=== PATIENT | male | born 1980 | race Caucasian/White ===

== ENCOUNTER 2016-11-10 16:31 | Inpatient (IN) | payer OTHER ==
[2016-11-10] MEDS ORDERED: SODIUM CHLORIDE 1,000 ML IV STA (16:53)
[2016-11-10 17:37] LABS: BASOPHIL 0.2 % (0-2.0); MCH 32.1 pg (25.7-33.7); MEAN CELL VOLUME 91.7 fl (80-96); MEAN PLT VOLUME 9.3 fl (7.5-11.1); NEUTROPHILS 79.4 % (42.8-82.8); PLATELET COUNT 95 K/MM3 (134-434); RDW 12.7 % (11.9-15.9); WHITE BLOOD COUNT 4.1 K/mm3 (4.0-10.0)
--- NOTE | 2016-11-10 17:48 | PDOC ---
History of Present Illness - General History Source: Patient Exam Limitations: No Limitations - History of Present Illness Initial Comments: 11/10/16 18:43 The patient is a 36 year old male, with a significant past medical history of pacemaker, HTN and migraines, who presents to the emergency department after being sent by Dr. Wyman for positive blood cultures. The patient was dischareged 5 days ago from [facility] after a syncope episode after a 2 day stay and returned 2 days later for left arm cellulitis, fever and chills. The patient was discharged same day with antibiotics. The patient returned to the ED early this morning at 1:30am with complaints of fever, chills, headache, cough, vomiting and diarrhea that has been intermittent since he left the hospital. Upon presentation he still complaints of fever, chills, headache, abdominal pain /bloating, vomiting and diarrhea. He describes his headache as moderate, without radiation or modifying factors. He describes his abdominal pain as a bloating type of discomfort, that is mild in nature, without radiation or modifying factors. The patient denies neck stiffness, chest pain, shortness of breath, dizziness and constipation. Denies dysuria, frequency, urgency and hematuria. Allergies: None Past surgical history: Pacemaker Social history: No alcohol, tobacco or drug use reported PMD - Dr. David Wyman <Dale Diane - Last Filed: 11/10/16 18:43> <Geovany Parsons - Last Filed: 11/10/16 20:28> - General Chief Complaint: Revisit, Lab Variance Stated Complaint: PCP SENT/SEPSIS Time Seen by Provider: 11/10/16 16:53 Past History <Dale Diane - Last Filed: 11/10/16 18:43> - Past Medical History Cardiac Disorders: Yes (cad) HTN: Yes Other medical history: migraines - Surgical History Cardiac Surgery: Yes (pacemaker) - Psycho/Social/Smoking Cessation Hx Anxiety: No Suicidal Ideation: No Smoking History: Unknown if ever smoked Have you smoked in the past 12 months: No Number of Cigarettes Smoked Daily: 0 Information on smoking cessation initiated: No Hx Alcohol Use: No Drug/Substance Use Hx: No Substance Use Type: None <Geovany Parsons - Last Filed: 11/10/16 20:28> - Past Medical History Allergies/Adverse Reactions: Allergies Allergy/AdvReac Type Severity Reaction Status Date / Time alcohol Allergy Hives Verified 11/10/16 16:33 Penicillins Allergy Verified 11/10/16 16:33 Sulfa (Sulfonamide Allergy Verified 11/10/16 16:33 Antibiotics) Home Medications: Ambulatory Orders Enalapril Maleate 2.5 mg PO DAILY 02/14/16 Montelukast Na [Singulair -] 10 mg PO HS 11/04/16 Topiramate [Topamax -] 25 mg PO BID #60 tablet 11/06/16 Bacitracin - [Bacitracin Topical Ointment -] 1 applic TP BID PRN #1 tube Cephalexin Monohydrate [Keflex -] 500 mg PO Q8H #30 capsule 11/09/16 Sulfamethoxazole/Trimethoprim [Bactrim Ds -] 1 tab PO BID #20 tablet 11/09/16 Clindamycin [Cleocin -] 300 mg PO Q6HPO #40 capsule 11/10/16 Ibuprofen [Advil -] 600 mg PO QID PRN 11/10/16 Review of Systems - Review of Systems Able to Perform ROS?: Yes Comments:: 11/10/16 18:44 CONSTITUTIONAL: No reported: Fever, Chills, Diaphoresis, Generalized Weakness, Malaise, Loss of Appetite HEENT: No reported: Rhinorrhea, Nasal Congestion, Throat Pain, Throat Swelling, Difficulty Swallowing, Mouth Swelling, Ear Pain, Eye Pain, Visual Changes CARDIOVASCULAR: No reported: Chest Pain, Syncope, Palpitations, Irregular Heart Rate, Lightheadedness, Peripheral Edema RESPIRATORY: No reported: Cough, Shortness of Breath, SOB with Exertion, Orthopnea, Wheezing , Stridor, Hemoptysis GASTROINTESTINAL: No reported: Abdominal pain, Abdominal Distension, Nausea, Vomiting, Diarrhea, Constipation, Melena, Hematochezia GENITOURINARY: No reported: Dysuria, Frequency, Urgency, Hesitancy, Flank Pain, Genital Pain MUSCULOSKELETAL: No reported: Myalgia, Arthralgia, Joint Swelling, Back pain, Neck Pain SKIN: No reported: Rash, Itching, Pallor HEMEATOLOGIC/IMMUNOLOGIC: No reported: Easy Bleeding, Easy Bruising, Lymphadenopathy, Frequent infections ENDOCRINE: No reported: Unexplained Weight Gain, Unexplained Weight Loss, Heat Intolerance , Cold Intolerance NEUROLOGIC: No reported: Headache, Focal Weakness, Paresthesias, Vertigo, Lightheadedness, Unsteady Gait, Seizure, Mental Status Changes, Incontinence PSYCHIATRIC: No reported: Anxiety, Depression <Dale Diane - Last Filed: 11/10/16 18:43> *Physical Exam - Vital Signs Last Vital Signs Temp Pulse Resp BP Pulse Ox 98.9 F 88 20 94/54 97 11/10/16 17:55 11/10/16 17:55 11/10/16 17:55 11/10/16 17:55 11/10/16 17:55 - Physical Exam Comments: 11/10/16 18:44 GENERAL: The patient is awake, alert, and fully oriented, Nontoxic - in no acute distress. HEAD: Normocephalic, atraumatic. EYES: extraocular movements intact, sclera anicteric, conjunctiva clear. ENT: Normal voice, Moist mucous membranes. NECK: Normal range of motion, supple LUNGS: Breath sounds equal, clear to auscultation bilaterally. No wheezes, no rhonchi, no rales. HEART: Regular rate and rhythm, without murmur, rub or gallop. ABDOMEN: Soft, nontender, normoactive bowel sounds. No guarding, no rebound.No CVA tenderness EXTREMITIES: Normal range of motion, no edema. No clubbing or cyanosis. No cords, erythema, or tenderness. NEUROLOGICAL: No facial assymetry, Normal speech, PSYCH: Normal mood, normal affect. SKIN: +Erythema over the left bicep and induration with tenderness in the distal upper arm. Warm, Dry, normal turgor. <Dale Diane - Last Filed: 11/10/16 18:43> - Vital Signs Last Vital Signs Temp Pulse Resp BP Pulse Ox 98.6 F 100 H 18 120/70 100 11/10/16 16:35 11/10/16 16:35 11/10/16 16:35 11/10/16 16:35 11/10/16 17:15 <Geovany Parsons - Last Filed: 11/10/16 20:28> Heart Score/ECG Review - ECG Impressions Comment:: 11/10/16 18:11 Twelve-lead EKG was performed and reviewed by me. There is normal sinus rhythm with a normal rate. Rate of 88 The axis is normal. Incomplete RBBB no st changes suggestive of acute ischemia <Geovany Parsons - Last Filed: 11/10/16 20:28> ED Treatment Course - LABORATORY CBC & Chemistry Diagram: 11/10/16 17:19 11/10/16 17:19 - ADDITIONAL ORDERS Additional order review: Laboratory Results 11/10/16 11/10/16 11/10/16 18:15 17:19 17:19 INR PTT (Actin FS) VBG pH 7.35 POC VBG pCO2 41.7 POC VBG pO2 16.8 L* Mixed VBG HCO3 22.1 Sodium 140 Potassium 3.1 L Chloride 105 Carbon Dioxide 24 Anion Gap 11 BUN 11 D Creatinine 1.2 D Creat Clearance w eGFR > 60 Random Glucose 127 H D Lactic Acid 0.954 Calcium 8.0 L Total Bilirubin 0.5 AST 42 H D ALT 42 Alkaline Phosphatase 74 Creatine Kinase 413 H Troponin I < 0.02 Total Protein 6.3 L Albumin 3.2 L 11/10/16 17:19 INR 1.47 H PTT (Actin FS) 34.7 H VBG pH POC VBG pCO2 POC VBG pO2 Mixed VBG HCO3 Sodium Potassium Chloride Carbon Dioxide Anion Gap BUN Creatinine Creat Clearance w eGFR Random Glucose Lactic Acid Calcium Total Bilirubin AST ALT Alkaline Phosphatase Creatine Kinase Troponin I Total Protein Albumin 11/10/16 17:19 RBC 4.19 MCV 91.7 MCHC 35.0 RDW 12.7 MPV 9.3 Neutrophils % 79.4 Lymphocytes % 14.9 D Monocytes % 5.5 Eosinophils % 0.0 Basophils % 0.2 - Medications Given in the ED: ED Medications Discontinued Medications Generic Name Dose Route Start Last Admin Trade Name Joan PRN Reason Stop Dose Admin Acetaminophen 650 mg 11/10/16 18:01 11/10/16 18:14 Tylenol - PO 11/10/16 18:02 650 mg ONCE ONE Administration Sodium Chloride 1,000 mls @ 1,000 mls/hr 11/10/16 16:53 11/10/16 18:03 Normal Saline - IV 11/10/16 17:52 1,000 mls/hr ASDIR STA Administration <Dale Diane - Last Filed: 11/10/16 18:43> - LABORATORY CBC & Chemistry Diagram: 11/10/16 17:19 11/10/16 17:19 - RADIOLOGY Radiology Studies Ordered: Category Date Time Status CHEST X-RAY PORTABLE* [RAD] Stat Radiology 11/10/16 16:53 Ordered DUPLEX VASCUL US-1 ARM [US] Stat Ultrasound 11/10/16 17:39 Ordered <Geovany Parsons - Last Filed: 11/10/16 20:28> Medical Decision Making - Medical Decision Making 11/10/16 18:02 36y M hx of syncope s/p PM presents with fever pt had recent admission for syncope, and has been feeling L arm pain, fever/chills for several days, pt was in the ED 2x the past 2 days, but was dc with oral abx with dx of cellulitis. pt went to his PMD who saw that he had a +blood cx x2 with MSSA and told the pt tocme back to the ED. ON exam pt does have a LUE infection proximal to his iv site that appears indurated. will obtain us to r/o dvt blood work case balta bland - recommended ancef repeat blood cultures obtained pts bp was low normal - will fluid resusistate sepsps protocol obtained. A portion of this note was documented by scribe services under my direction. I have reviewed the details of the note, within reason, and agree with the documentation with the following case summary and management plan written by me 11/10/16 18:16 11/10/16 20:15 LABS REVIEWED pts K repleted case dw dr. qiu agreed with admission for further management of bacteremia Stable for admission to [facility] Case discussed in detail with admitting physician including history, physical exam and ancillary studies. Admitting physician has assumed care for the patient, will follow all pending diagnostics and will complete the evaluation and treatment. 11/10/16 20:26 US shows thrombosis of distal cephalic vein - supervicial vein thrombbosis - liklye related to thromphlebitis <Geovany Parsons - Last Filed: 11/10/16 20:28> *DC/Admit/Observation/Transfer - Attestations Scribe Attestion: 11/10/16 18:44 Documentation prepared by Dale Diane, acting as medical transcription supervisor for Geovany Parsons MD <Dale Diane - Last Filed: 11/10/16 18:43> - Discharge Dispostion Admit: Yes <Geovany Parsons - Last Filed: 11/10/16 20:28> Diagnosis at time of Disposition: Left arm cellulitis, Bacteremia, Thrombosis of left cephalic vein - Referrals
[2016-11-10 17:50] LABS: INR 1.47 (0.82-1.09); PROTHROMBIN TIME (PATIENT) 16.3 SEC (9.98-11.88)
[2016-11-10 17:53] LABS: ACTIVATED PTT 34.7 SECONDS (26.9-34.4)
[2016-11-10] MEDS ORDERED: ACETAMINOPHEN 325 MG TABLET (FP) PO ONE (18:01)
[2016-11-10 18:05] LABS: ALBUMIN 3.2 g/dl (3.4-5.0); ANION GAP 11 (8-16); CO2 24 mmol/L (21-32); CREATININE 1.2 mg/dL (0.7-1.3); GLUCOSE,RANDOM 127 mg/dL (74-106); SGOT/AST 42 U/L (15-37); SGPT/ALT 42 U/L (12-78)
--- NOTE | 2016-11-10 18:06 | PN ---
Progress Note (short form) - Note Progress Note: Full consult to follow in am Patient seen in ED at the request of Dr Wyman. 36 year old man recently hospitalized 11/04 to 11/06 for syncope- PPM check ok, d/ [facility]rie home and developed fevers at home, came to ED 11/09 with c/o left arm swelling and purulent drainage from prior iv site (antecub) fossa as well as fever- he was given iv antibiotics and discharged on po keflex and bactrim he returned this am to ED with high fevers and vomiting and diarrhea which he states started after taking bactrim, he received vancomyin 1500 mg early this am and clindamycin 900 mg and was discharged on po clindamycin he went to see Dr Wyman this afternoon who noted positive blood cultures drawn in ED and sent him to ED his vomiting has stopped he is drinking gatorade currently afebrile PE notable for swelling of left upper arm with some mild erythema and warmth, no purulent drainage no pain or erythema at PPM site no stigmata of endocarditis -no skin lesions or conjunctival hemorrhages rest of ED workup has been ordered a/p staph bacteremia- secondary to phlebitis r/o endocarditis, r/o PPM infection duplex left arm ekg echo repeat blood cultures and labs cardiology consult stat vancomycin level- creatinine 1.6 this am will continue vancomycin until sensitivites are available for blood cultures in am pen allergy ?sulfa allergy (vomiting) d/w dr marlow and dr wyman
[2016-11-10 18:08] LABS: ALK PHOS 74 U/L (45-117); BILIRUBIN,TOTAL 0.5 mg/dL (0.2-1.0); TOT PROT 6.3 g/dl (6.4-8.2); TROPONIN I < 0.02 ng/ml (0.00-0.05)
[2016-11-10] MEDS ORDERED: ACETAMINOPHEN 325 MG TABLET (FP) ONE (18:10)
[2016-11-10 18:24] LABS: VENOUS BLOOD GAS HCO3 22.1 meq/L (19-25); VENOUS PH 7.35 (7.32-7.42)
[2016-11-10] MEDS ORDERED: ceFAZolin 2 GRAM PREMIX BAG IVPB ONE (19:00)
[2016-11-10] MEDS ORDERED: POTASSIUM CHLORIDE TABS 20 MEQ TABLET.ER (FP) PO ONE ×2 (19:53→20:09)
[2016-11-10] MEDS ORDERED: VANCOMYCIN 1,500 MG in DEXTROSE 5%-WATER - 500 ML IVPB ONE (20:02)
[2016-11-10] MEDS ORDERED: BACITRACIN 30 GM TUBE TOPICAL OINTMENT TP PRN (20:14)
[2016-11-10] MEDS ORDERED: ACETAMINOPHEN 325 MG TABLET (FP) PO PRN (20:15)
[2016-11-10] MEDS: SODIUM CHLORIDE 0.45% 1,000 ML IV SCH (21:00)
[2016-11-10] MEDS ORDERED: IBUPROFEN 200 MG TABLET PO PRN (21:20)
[2016-11-10] MEDS: MONTELUKAST NA 10 MG TABLET PO SCH (22:21)
[2016-11-10] MEDS: ENOXAPARIN NA (PORCINE) 40 MG/0.4 ML DISP.SYRIN SQ SCH (22:21)
[2016-11-10] MEDS ORDERED: VANCOMYCIN 1,500 MG in DEXTROSE 5%-WATER - 500 ML IVPB SCH (22:30)
[2016-11-10] MEDS ORDERED: IBUPROFEN 600 MG TABLET (FP) PO PRN (23:07)
[2016-11-10 23:27] VITALS: BMI 37.6
[2016-11-10] MEDS: TOPIRAMATE 25 MG TABLET (FP) PO SCH (23:31)
[2016-11-11 00:49] LABS: URINE APPEARANCE CLEAR; URINE BILIRUBIN NEGATIVE (NEGATIVE); URINE BLOOD NEGATIVE (NEGATIVE); URINE COLOR YELLOW; URINE GLUCOSE (UA) NEGATIVE (NEGATIVE); URINE KETONE NEGATIVE (NEGATIVE); URINE LEUK ESTERASE NEGATIVE (NEGATIVE); URINE NITRITE NEGATIVE (NEGATIVE); URINE UROBILINOGEN NEGATIVE E.U./dl (0.2-1.0)
[2016-11-11 00:52] LABS: URINE PROTEIN 2+ (NEGATIVE)
[2016-11-11 00:54] LABS: URINE BACTERIA FEW /hpf (NONE SEEN); URINE MUCUS MODERATE; URINE RBC 3 /hpf (0-3); URINE WBC 3 /hpf (3-5)
[2016-11-11 07:22] LABS: MCH 32.4 pg (25.7-33.7); MCHC 35.5 g/dl (32.0-35.9); MEAN CELL VOLUME 91.2 fl (80-96); MEAN PLT VOLUME 9.3 fl (7.5-11.1); PLATELET COUNT 73 K/MM3 (134-434); RDW 12.7 % (11.9-15.9); WHITE BLOOD COUNT 3.4 K/mm3 (4.0-10.0)
[2016-11-11 08:03] LABS: ALBUMIN 2.9 g/dl (3.4-5.0); ANION GAP 10 (8-16); BILIRUBIN,TOTAL 0.3 mg/dL (0.2-1.0); CALCIUM 8.2 mg/dL (8.5-10.1); CO2 22 mmol/L (21-32); CREATININE 0.8 mg/dL (0.7-1.3); GLUCOSE,RANDOM 119 mg/dL (74-106); SGOT/AST 29 U/L (15-37); SGPT/ALT 36 U/L (12-78); TOT PROT 5.8 g/dl (6.4-8.2)
[2016-11-11 08:04] LABS: ALK PHOS 61 U/L (45-117)
[2016-11-11] MEDS ORDERED: PT OWN MED DRAWER 7, Y5N ONE ×2 (10:29→18:08)
[2016-11-11] MEDS: ASPIRIN 81 MG CHEWABLE TABLETS PO SCH (10:34)
[2016-11-11] MEDS: TOPIRAMATE 25 MG TABLET (FP) PO SCH ×2 (10:34→23:39)
[2016-11-11] MEDS: ENALAPRIL MALEATE 5 MG TABLET (FP) PO SCH (10:35)
[2016-11-11] MEDS: ENOXAPARIN NA (PORCINE) 40 MG/0.4 ML DISP.SYRIN SQ SCH (10:35)
--- NOTE | 2016-11-11 11:32 | EKG ---
Test Reason : Blood Pressure : / mmHG Vent. Rate : 088 BPM Atrial Rate : 088 BPM P-R Int : 164 ms QRS Dur : 110 ms QT Int : 368 ms P-R-T Axes : 055 027 042 degrees QTc Int : 445 ms NORMAL SINUS RHYTHM POSSIBLE LEFT ATRIAL ENLARGEMENT INCOMPLETE RIGHT BUNDLE BRANCH BLOCK BORDERLINE ECG WHEN COMPARED WITH ECG OF 10-NOV-2016 02:09, NO SIGNIFICANT CHANGE WAS FOUND Confirmed by LICHA LAND, STONEY ([id number]) on 11/11/2016 11:31:59 AM Referred By: Confirmed By:STONEY HURT MD
[2016-11-11] MEDS ORDERED: CEFAZOLIN 2 GM in DEXTROSE 5%-WATER - 50 ML IVPB SCH (11:45)
--- NOTE | 2016-11-11 11:58 | PN ---
Progress Note (short form) - Note Progress Note: still feels lousy no fevers overnight continues with frontal headache 01/23 no neck pain still some nausea still some diarrhea which started 2 days ago at home Vital Signs Period Temp Pulse Resp BP Sys/Draper Pulse Ox Last 24 Hr 97.7 F-98.9 F 65-100 18-20 91-120/53-70 97-100 no conjunctival hemorrhages cor-rrr lungs clear pacemaker site no erythema abd soft,nt ext less erythema left upper arm CBC, BMP 11/11/16 06:10 11/11/16 06:10 blood cultures pending blood cultures 11/09 MSSA duplex- cephalic vein thrombus a/p MSSA bacteremia-r/o endocarditis/PPM infection? suspect from phlebitis change to cefazolin (pen allergy-no anaphylaxis, tolerated keflex and cefriaxone in the ED) echo cardiology consult repeat blood cultures pending esr/crp thrombocytopenia- ?secondary to sepsis dic profile ordered headache-head ct today cephalic vein thrombus PPM
--- NOTE | 2016-11-11 12:10 | HP ---
Admitting History and Physical - Primary Care Physician PCP: Molly Burton - Admission Chief Complaint: bacteremia History of Present Illness: 36 yrs old male sent to hospital yesterday for positive blood cultures. Pt was recently discharged from here for syncope. He did not feel good after discharge.Had developed redness and a pimple on the left cubital region where he had his IV line placed. Went to the ER twice due to high fever and dc home on Keflex and Bactrim. He had allergic reaction to Bactrim. He went to Dr Nugent' s office yesterday as he was still feeling weak and sick-- poor appetite . Still had fever and left arm pain . Dr nugent looked into the ER notes and found out his blood cultures were all positive for MSSA. Pt examined today Poor appetite Chills No chest pain Has "terrible" headache. No nausea, blurry vision. Frontal headache radiating to back of head. 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 Cardiovascular: Yes: HTN, Other (PPM , h/o syncope) - Smoking History Smoking history: Never smoked Have you smoked in the past 12 months: No Aproximately how many cigarettes per day: 0 - Alcohol/Substance Use Hx Alcohol Use: No Home Medications - Allergies Allergies/Adverse Reactions: Allergies Allergy/AdvReac Type Severity Reaction Status Date / Time alcohol Allergy Hives Verified 11/10/16 16:33 Penicillins Allergy Verified 11/10/16 16:33 Sulfa (Sulfonamide Allergy Verified 11/10/16 16:33 Antibiotics) - Home Medications Home Medications: Ambulatory Orders Enalapril Maleate 2.5 mg PO DAILY 02/14/16 Montelukast Na [Singulair -] 10 mg PO HS 11/04/16 Topiramate [Topamax -] 25 mg PO BID #60 tablet 11/06/16 Bacitracin - [Bacitracin Topical Ointment -] 1 applic TP BID PRN #1 tube Cephalexin Monohydrate [Keflex -] 500 mg PO Q8H #30 capsule 11/09/16 Sulfamethoxazole/Trimethoprim [Bactrim Ds -] 1 tab PO BID #20 tablet 11/09/16 Clindamycin [Cleocin -] 300 mg PO Q6HPO #40 capsule 11/10/16 Ibuprofen [Advil -] 600 mg PO QID PRN 11/10/16 Review of Systems - Review of Systems Eyes: denies: Blurred Vision Cardiovascular: denies: Chest Pain, Edema, Palpitations, Shortness of Breath Respiratory: denies: Cough Neurological: reports: Headache Physical Examination Vital Signs: Vital Signs Temperature 97.7 F 11/11/16 05:43 Pulse Rate 65 11/11/16 05:43 Respiratory Rate 20 11/11/16 06:53 Blood Pressure 111/65 11/11/16 05:43 O2 Sat by Pulse Oximetry (%) 97 11/11/16 06:53 Constitutional: Yes: No Distress, Calm Cardiovascular: Yes: Regular Rate and Rhythm. No: Murmur Respiratory: Yes: CTA Bilaterally Gastrointestinal: Yes: Normal Bowel Sounds, Soft. No: Distention, Tenderness Edema: No Neurological: Yes: Alert, Oriented, Other (no neck rigidity) Psychiatric: Yes: Alert, Oriented Labs: CBC, BMP 11/11/16 06:10 11/11/16 06:10 Imaging - Results Chest X-ray: Image Reviewed (cardiomegaly, no infiltrate) Ultrasound: Report Reviewed (left arm cephalic vein thrombosis) EKG: Image Reviewed (SInus, incomplete RBBB) Problem List - Problems (1) Bacteremia Code(s): R78.81 - BACTEREMIA (2) Cephalic vein thrombosis, left Code(s): I82.612 - ACUTE EMBOLISM AND THOMBOS OF SUPERFIC VEINS OF L UP EXTREM (3) Left arm cellulitis Code(s): L03.114 - CELLULITIS OF LEFT UPPER LIMB (4) HTN (hypertension) Code(s): I10 - ESSENTIAL (PRIMARY) HYPERTENSION Qualifiers: Hypertension type: essential hypertension Qualified Code(s): I10 - Essential (primary) hypertension Assessment/Plan PLAN On IV Antibiotics Repeat blood cultures pending ID eval noted, spoke with ID Check CT head Cardiology eval for SWAPNA spoke with pt's girlfriend On Lovenox sc for DVT prophylaxis Warm compresses to left arm
[2016-11-11] MEDS ORDERED: traMADol HCL 50 MG TABLET PO PRN (12:11)
[2016-11-11 12:54] LABS: PLATELET ESTIMATE DECREASED (NORMAL)
[2016-11-11 13:20] LABS: INR 1.24 (0.82-1.09)
[2016-11-11] MEDS ORDERED: CEFTRIAXONE 100 ML IVPB ONE (13:46)
--- NOTE | 2016-11-11 14:10 | CONSULT ---
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 Cardio/Vascular: Yes: HTN, Other (PPM , h/o syncope) - Alcohol/Substance Use Hx Alcohol Use: No - Smoking History Smoking history: Never smoked Have you smoked in the past 12 months: No Aproximately how many cigarettes per day: 0 Home Medications - Allergies Allergies/Adverse Reactions: Allergies Allergy/AdvReac Type Severity Reaction Status Date / Time alcohol Allergy Hives Verified 11/10/16 16:33 Penicillins Allergy Verified 11/10/16 16:33 Sulfa (Sulfonamide Allergy Verified 11/10/16 16:33 Antibiotics) - Home Medications Home Medications: Ambulatory Orders Enalapril Maleate 2.5 mg PO DAILY 02/14/16 Montelukast Na [Singulair -] 10 mg PO HS 11/04/16 Topiramate [Topamax -] 25 mg PO BID #60 tablet 11/06/16 Bacitracin - [Bacitracin Topical Ointment -] 1 applic TP BID PRN #1 tube Cephalexin Monohydrate [Keflex -] 500 mg PO Q8H #30 capsule 11/09/16 Sulfamethoxazole/Trimethoprim [Bactrim Ds -] 1 tab PO BID #20 tablet 11/09/16 Clindamycin [Cleocin -] 300 mg PO Q6HPO #40 capsule 11/10/16 Ibuprofen [Advil -] 600 mg PO QID PRN 11/10/16 Physical Exam Vital Signs: Vital Signs Temperature 97.7 F 11/11/16 05:43 Pulse Rate 65 11/11/16 05:43 Respiratory Rate 20 11/11/16 06:53 Blood Pressure 111/65 11/11/16 05:43 O2 Sat by Pulse Oximetry (%) 97 11/11/16 06:53 Labs: CBC, BMP 11/11/16 06:10 11/11/16 06:10 Assessment/Plan Vascular Surgery 36 year old man recently hospitalized 11/04 to 11/06 for syncope- PPM check ok, d/ [facility] home and developed fevers at home, came to ED 11/09 with c/o left arm swelling and purulent drainage from prior iv site (antecub) fossa as well as fever- he was given iv antibiotics and discharged on po keflex and bactrim he returned this am to ED with high fevers and vomiting and diarrhea which he states started after taking bactrim, he received vancomyin 1500 mg early this am and clindamycin 900 mg and was discharged on po clindamycin he went to see Dr Wyman this afternoon who noted positive blood cultures drawn in ED and sent him to ED PE Head - NC/AT Lung - cTA Heart - RRR abd - soft,nt,nd ext - left upper ext -- erythema, swelling upper arm. Vein feels like a rope to touch. A/P SVT left cephalic vein 1. NSAIDs for pain 2. arm elevation 3. warm compresses. 4. IV antibiotics. Jignesh Galeana dO
--- NOTE | 2016-11-11 14:44 | CON.CARD ---
Cardiology Consult (text) - Consultation Consultation Note: cc: mssa bacteremia with intracardiac device. hpi: 36 m hx ppm (medtronic, approx 2004 placed, cardiac eval done in [place], per pt was put in for cardiogenic syncope), NICM (mod reduced lvef found on echo06/2015 now normalized on medical therapy), migraines, here with mssa bacteremia 2/2 phlebitis Presented last week with syncope after feeling flu like symptoms and n/v. since then has progressively felt worse with f/c/s. Multiple ER visits this week for progressive sx's and fevers to 103. + n/v/d persist. + cough, nasal congestion. + myalgias. Also with erythema at site of prior IV site of left arm. No discomfort at ppm site. No cp, sob, palps, pnd, orthopnea, le edema. No bleeding. + dizziness no further episodes of syncope. + chronic dizziness and intermittent syncope for years. + chronic migraines. cardio: Dr. guerra pmh: per hpi psh: ppm social: no tob fam: no hx premature cad or scd ros: per hpi; Ambulatory Orders Enalapril Maleate 2.5 mg PO DAILY 02/14/16 Montelukast Na [Singulair -] 10 mg PO HS 11/04/16 Topiramate [Topamax -] 25 mg PO BID #60 tablet 11/06/16 Bacitracin - [Bacitracin Topical Ointment -] 1 applic TP BID PRN #1 tube Cephalexin Monohydrate [Keflex -] 500 mg PO Q8H #30 capsule 11/09/16 Sulfamethoxazole/Trimethoprim [Bactrim Ds -] 1 tab PO BID #20 tablet 11/09/16 Clindamycin [Cleocin -] 300 mg PO Q6HPO #40 capsule 11/10/16 Ibuprofen [Advil -] 600 mg PO QID PRN 11/10/16 Current Medications Acetaminophen (Tylenol -) 650 mg PO Q6H PRN PRN Reason: FEVER OR PAIN Last Admin: 11/11/16 01:09 Dose: 650 mg Aspirin (Asa -) 81 mg PO DAILY TIFFANIE Last Admin: 11/11/16 10:34 Dose: 81 mg Bacitracin (Bacitracin -) 1 applic TP BID PRN PRN Reason: SKIN INFECTION Last Admin: 11/10/16 23:31 Dose: 1 applic Enalapril Maleate (Vasotec -) 2.5 mg PO DAILY [facility] Last Admin: 11/11/16 10:35 Dose: 2.5 mg Enoxaparin Sodium (Lovenox -) 40 mg SQ DAILY [facility] Last Admin: 11/11/16 10:35 Dose: 40 mg Sodium Chloride (1/2 Normal Saline) 1,000 mls @ 83 mls/hr IV ASDIR [facility] Last Admin: 11/10/16 21:00 Dose: 83 mls/hr Cefazolin Sodium/Dextrose (Ancef 2 Gm Premixed Ivpb -) 50 mls @ 100 mls/hr IVPB Q8H-IV TIFFANIE Montelukast Sodium (Singulair -) 10 mg PO HS [facility] Last Admin: 11/10/16 22:21 Dose: 10 mg Topiramate (Topamax -) 25 mg PO BID [facility] Last Admin: 11/11/16 10:34 Dose: 25 mg Tramadol HCl (Ultram -) 50 mg PO Q6H PRN PRN Reason: PAIN pe: Vital Signs - 24 hr 11/10/16 11/10/16 11/10/16 16:35 17:15 17:55 Temperature 98.6 F 98.9 F Pulse Rate 100 H Pulse Rate [ 88 Apical] Respiratory 18 20 Rate Blood Pressure 120/70 Blood Pressure 94/54 [Left Arm] O2 Sat by Pulse 100 100 97 Oximetry (%) 11/10/16 11/11/16 11/11/16 23:14 02:00 05:43 Temperature 97.8 F 98.4 F 97.7 F Pulse Rate 78 81 65 Pulse Rate [ Apical] Respiratory 20 20 20 Rate Blood Pressure 91/53 111/64 111/65 Blood Pressure [Left Arm] O2 Sat by Pulse 97 Oximetry (%) 11/11/16 06:53 Temperature Pulse Rate Pulse Rate [ Apical] Respiratory 20 Rate Blood Pressure Blood Pressure [Left Arm] O2 Sat by Pulse 97 Oximetry (%) Intake & Output 11/09/16 11/10/16 11/11/16 11/12/16 07:59 07:59 07:59 07:59 Intake Total 950 Balance 950 Weight 293 lb 8 oz nad no jvd, + diaphoresis rrr s1s2 no mrg non-displaced pmi cta bl nl eff aaox3 no le e/c/c abd nt nd pos bs no hepato/splenomegaly pos dp pt no carotid bruits no jaundice diaphoresis erythema and palpable cord at left arm PPM pocket without calor, erythema or tenderness. CBC, BMP 11/11/16 06:10 11/11/16 06:10 Laboratory Tests 11/10/16 11/10/16 11/10/16 02:00 17:19 20:00 INR Fibrinogen Lactic Acid 1.072 Magnesium 1.4 L D Total Bilirubin AST 66 H D ALT Alkaline Phosphatase Creatine Kinase 493 H D 413 H Creatine Kinase Index 0.3 CK-MB (CK-2) 1.468 Troponin I < 0.02 < 0.02 C-Reactive Protein B-Natriuretic Peptide 706.25 H Albumin 11/11/16 11/11/16 11/11/16 06:10 12:20 12:20 INR Fibrinogen Lactic Acid Magnesium Total Bilirubin 0.3 D AST 29 D ALT 36 Alkaline Phosphatase 61 Creatine Kinase 227 D Creatine Kinase Index CK-MB (CK-2) Troponin I C-Reactive Protein 10.4 H B-Natriuretic Peptide Albumin 2.9 L 11/11/16 12:20 INR 1.24 H Fibrinogen 529.0 H Lactic Acid Magnesium Total Bilirubin AST ALT Alkaline Phosphatase Creatine Kinase Creatine Kinase Index CK-MB (CK-2) Troponin I C-Reactive Protein B-Natriuretic Peptide Albumin Microbiology 11/09/16 03:14 Blood - Peripheral Venous Blood Culture - Final Staphylococcus Aureus 11/09/16 03:14 Blood - Peripheral Venous Blood Culture - Preliminary Staphylococcus Aureus echo 10/2016 [facility]: TDS, grossly nl lv/rv, trace-mild mr, 1+ tr echo 02/2016 [facility]: TDS, grossly nl lv/rv. 1+ tr rvsp 30-40. echo 06/2015: mod red lvef, global hk, rv tds, mild-mod tr, rvsp 30-40 cath 07/2015: only had <30% mLAD, lvef normal ecg: NSR. incomplete rbbb. no ischemic changes. In comparison to prior, ID interval has slightly shortened. a/p: 36 m hx ppm (medtronic, approx 2004 placed, cardiac eval done in [place] , per pt was put in for cardiogenic syncope), NICM (mod reduced lvef found on echo 06/2015 now normalized on medical therapy), migraines, here with syncope. MSSA bacteremia - TTE tds. Discussed with EP at [facility] and will plan for transfer for assessment of need for ppm removal. Patient wishes to discuss with his significant other before making final decision. - monitor for recurrent + cultures, and worsening thrombocytopenia. - per pmd, ID. NICM now with nl function -echo in 06/2015 showed mod reduced lvef. He was started on bb/maximo-i for chf regimen and also sent for cardiac cath (no sign disease) --> NICM. Subsequent echocaridiograms with normal function. -no signs chf -cont home bb/maximo medtronic single chamber ppm, not ppm dependent: - interrogated last week. Possible extraction as above. phlebitis - per pmd, vascular
--- NOTE | 2016-11-11 14:56 | CONS ---
DATE OF CONSULTATION: 11/10/2016 HISTORY OF PRESENT ILLNESS: This is a 36-year-old man recently hospitalized November 04 to November 06 for syncope. He has a pacemaker, which he has had for the last 10 years. He had a pacemaker check during that admission, which was okay. He was discharged home. He reports he developed fevers at home. He came to the emergency room on November 09 with complaints of left arm swelling, erythema and purulent drainage from a prior IV site in the antecubital fossa, as well as fever. He was given IV antibiotics and discharged on oral Keflex and Bactrim. He returned November 10 morning with the complaints of high fever and vomiting and diarrhea, which he states started after taking the Bactrim. He received vancomycin and clindamycin in the emergency room and was discharged on oral clindamycin. He continued to feel lousy and he went to see his primary doctor, Dr. Wyman, who noted he had positive blood cultures and sent him to the emergency room. I saw the patient in the ER at the request of Dr. Wyman who called me. The patient reports his vomiting had stopped. He had started drinking Gatorade. He still had some loose stools and was afebrile at the time I saw him. ALLERGIES: He has a history of ALLERGY TO ALCOHOL, which he states is severe, PENICILLINS, he is unsure what that allergy is, though he has received cephalosporins over the last several days in the emergency room and we think a SULFA ALLERGY due to the vomiting and diarrhea that he states started after taking Bactrim. PAST MEDICAL HISTORY: Notable for syncope, hypertension and permanent pacemaker. FAMILY HISTORY: Noncontributory. SOCIAL HISTORY: He lives here in [place]. He does [employer] work. There is no history of any cigarette, alcohol or substance use. REVIEW OF SYSTEMS: Notable for fever and chills, which he had at home, generalized weakness. He denies back pain. He denies chest pain. He notes he has nausea and still is having some diarrhea. PHYSICAL EXAMINATION: Vitals: He was afebrile in the emergency room. Temperature of 98.9. Current temperature was 97.7, pulse of 65, blood pressure 111/65, respiratory rate of 20. HEENT: He is normocephalic. His eyes are anicteric. He has no conjunctival hemorrhages. He has no thrush. Neck: Supple. Lungs: Clear to auscultation. Heart: Regular rate and rhythm. His permanent pacemaker site is without any erythema or pain. Abdomen: Soft, nontender. Extremities: Notable some induration erythema of his left arm. There is no purulent drainage noted from his antecubital fossa. LABS: His labs in the emergency room are notable for a white count of 4.1, hemoglobin 13.5, platelets of 95,000. His BUN 11 and creatinine 1.2 with a CK of 413, AST of 42. Urinalysis was negative. In summary, a 36-year-old man with Staphylococcus bacteremia. At the time I saw him in the emergency room the susceptibilities were not back. We elected to continue him on vancomycin at that time. This morning I will switch him to cefazolin given that he has unclear PENICILLIN ALLERGY, but has tolerated cephalosporins. I suspect his bacteremia is due to the phlebitis. Will need to rule out endocarditis. Concern also for pacemaker infection. I would suggest echo, sed rate, CRP, Cardiology consult, repeat blood cultures, which are pending. He has thrombocytopenia. Will send a DIC profile. He has persistent headache. Head CT has been ordered as well. Duplex of his arm was done in the emergency room and shows a cephalic vein thrombus. This case was discussed yesterday with Dr. Wyman, this morning with Dr. Burton. Further recommendations to follow based on his clinical course. RENETTA ORDAZ M.D. [id number]
[2016-11-11] MEDS: CEFAZOLIN 2 GM/D5W 50 ML IVPB SCH (18:12)
[2016-11-11] MEDS: MONTELUKAST NA 10 MG TABLET PO SCH (23:38)
[2016-11-11] MEDS: SODIUM CHLORIDE 0.45% 1,000 ML IV SCH (23:39)
[2016-11-11] MEDS: ONDANSETRON 4 MG/2 ML VIAL IVPB PRN (23:40)
[2016-11-12] MEDS: CEFAZOLIN 2 GM/D5W 50 ML IVPB SCH ×3 (01:16→18:15)
[2016-11-12 08:02] LABS: MCH 32.3 pg (25.7-33.7); MCHC 35.1 g/dl (32.0-35.9); MEAN CELL VOLUME 91.9 fl (80-96); MEAN PLT VOLUME 9.9 fl (7.5-11.1); PLATELET COUNT 92 K/MM3 (134-434); RDW 12.5 % (11.9-15.9); WHITE BLOOD COUNT 3.6 K/mm3 (4.0-10.0)
[2016-11-12 08:34] LABS: CALCIUM 8.9 mg/dL (8.5-10.1); CREATININE 0.8 mg/dL (0.7-1.3)
[2016-11-12] MEDS: ONDANSETRON 4 MG/2 ML VIAL IVPB PRN (10:49)
--- NOTE | 2016-11-12 10:49 | PN ---
Progress Note (short form) - Note Progress Note: s: no cp sob palps dizzy o: Vital Signs Period Temp Pulse Resp BP Sys/Draper Pulse Ox Last 24 Hr 97.6 F-98.6 F 61-80 20-20 118-137/60-69 99 nad no jvd rrr s1s2 no mrg cta bl nl eff aaox3 no le e/c/c no jaundice diaphoresis Current Medications Generic Name Dose Route Start Last Admin Trade Name Freq PRN Reason Stop Dose Admin Acetaminophen 650 mg 11/10/16 20:15 11/11/16 01:09 Tylenol - PO 650 mg Q6H PRN Administration FEVER OR PAIN Aspirin 81 mg 11/11/16 10:00 11/11/16 10:34 Asa - PO 81 mg DAILY TIFFANIE Administration Bacitracin 1 applic 11/10/16 20:14 11/10/16 23:31 Bacitracin - TP 1 applic BID PRN Administration SKIN INFECTION Enalapril Maleate 2.5 mg 11/11/16 10:00 11/11/16 10:35 Vasotec - PO 2.5 mg DAILY TIFFANIE Administration Enoxaparin Sodium 40 mg 11/10/16 21:00 11/11/16 10:35 Lovenox - SQ 40 mg DAILY TIFFANIE Administration Cefazolin Sodium/Dextrose 50 mls @ 100 mls/hr 11/11/16 11:50 11/12/16 01:16 Ancef 2 Gm Premixed Ivpb - IVPB 100 mls/hr Q8H-IV TIFFANIE Administration Montelukast Sodium 10 mg 11/10/16 22:00 11/11/16 23:38 Singulair - PO 10 mg HS TIFFANIE Administration Ondansetron HCl 4 mg 11/11/16 22:46 11/12/16 10:49 Zofran Injection IVPB 4 mg Q6H PRN Administration NAUSEA AND/OR VOMITING Potassium Chloride 20 meq 11/12/16 10:05 K-Dur - PO 11/12/16 10:06 ONCE ONE Topiramate 25 mg 11/10/16 22:00 11/11/16 23:39 Topamax - PO 25 mg BID TIFFANIE Administration Tramadol HCl 50 mg 11/11/16 22:46 Ultram - PO Q4H PRN PAIN CBC, BMP 11/12/16 06:00 11/12/16 06:00 echo 10/2016 [facility]: TDS, grossly nl lv/rv, trace-mild mr, 1+ tr echo 02/2016 [facility]: TDS, grossly nl lv/rv. 1+ tr rvsp 30-40. echo 06/2015: mod red lvef, global hk, rv tds, mild-mod tr, rvsp 30-40 cath 07/2015: only had <30% mLAD, lvef normal ecg: likely sr (can't exclude underlying atrial arrhythmia - has prominent u wave, baseline artifact with intermittent abnormal t wave contour that may represent hidden atrial activity), incomplete rbbb, AV conduction delay. no ischemic changes a/p: 36 m hx ppm (medtronic, approx 2004 placed, cardiac eval done in [place] , per pt was put in for cardiogenic syncope), NICM (mod reduced lvef found on echo 06/2015 now normalized on medical therapy), migraines, here with +bld cxs. MSSA bacteremia: -likely source from phlebitis -repeat bld cxs ngtd, no fever, wbc low -TTE tds. -had discussed with EP at [facility] in regards to transfer for assessment of need for ppm removal. Again discussed with pt today and he prefers to stay here for now. Pt says he will think about it further and d/w girlfriend. - abx per ID hx of syncope: -pt has hx of intermittent syncopal episodes. cardiac workup 10 yrs ago in [place] revealed "cardiogenic syncope" and led to ppm per pt -recently here with + orthostatic vitals in setting of dehydration from poor po intake during recent illness, likely this is etiology of recent syncope. -tele unremarkable during recent admit and ppm check then showed nl fcn, no pacing required, battery approx 11 mos left -no cardiac etiology of recent syncope episodes -if episode were to occur again would consider stopping maximo/bb (currently on for chf) and see if this helps and then next would be midodrine or florinef NICM -echo in 06/2015 showed mod reduced lvef. He was started on bb/maximo-i for chf regimen and also sent for cardiac cath showing NICM. -after being on chf med repeat echos show nl lvef -no signs chf -cont home maximo. bb held due to low bp here, likely from infection medtronic single chamber ppm: -ppm check here (11/05/16) shows nl fcn, no pacing required, battery approx 11 mos left
[2016-11-12] MEDS: traMADol HCL 50 MG TABLET PO PRN ×2 (10:55→21:48)
--- NOTE | 2016-11-12 11:16 | PN ---
Progress Note, Physician Chief Complaint: feels weak Not tolerating po diet has loose stools Nauseous Headaches better with Tramadol - Current Medication List Current Medications: Active Medications Acetaminophen (Tylenol -) 650 mg PO Q6H PRN PRN Reason: FEVER OR PAIN Last Admin: 11/11/16 01:09 Dose: 650 mg Aspirin (Asa -) 81 mg PO DAILY [facility] Last Admin: 11/11/16 10:34 Dose: 81 mg Bacitracin (Bacitracin -) 1 applic TP BID PRN PRN Reason: SKIN INFECTION Last Admin: 11/10/16 23:31 Dose: 1 applic Enalapril Maleate (Vasotec -) 2.5 mg PO DAILY [facility] Last Admin: 11/11/16 10:35 Dose: 2.5 mg Enoxaparin Sodium (Lovenox -) 40 mg SQ DAILY [facility] Last Admin: 11/11/16 10:35 Dose: 40 mg Cefazolin Sodium/Dextrose (Ancef 2 Gm Premixed Ivpb -) 50 mls @ 100 mls/hr IVPB Q8H-IV [facility] Last Admin: 11/12/16 01:16 Dose: 100 mls/hr Montelukast Sodium (Singulair -) 10 mg PO HS [facility] Last Admin: 11/11/16 23:38 Dose: 10 mg Ondansetron HCl (Zofran Injection) 4 mg IVPB Q6H PRN PRN Reason: NAUSEA AND/OR VOMITING Last Admin: 11/12/16 10:49 Dose: 4 mg Potassium Chloride (K-Dur -) 20 meq PO ONCE ONE Stop: 11/12/16 10:06 Topiramate (Topamax -) 25 mg PO BID [facility] Last Admin: 11/11/16 23:39 Dose: 25 mg Tramadol HCl (Ultram -) 50 mg PO Q4H PRN PRN Reason: PAIN Last Admin: 11/12/16 10:55 Dose: 50 mg - Objective Vital Signs: Vital Signs Temperature 98.5 F 11/12/16 10:57 Pulse Rate 66 11/12/16 10:57 Respiratory Rate 16 11/12/16 10:57 Blood Pressure 114/58 11/12/16 10:57 O2 Sat by Pulse Oximetry (%) 99 11/11/16 21:00 Constitutional: Yes: Anxious Cardiovascular: Yes: Regular Rate and Rhythm Respiratory: Yes: CTA Bilaterally Gastrointestinal: Yes: Normal Bowel Sounds, Soft. No: Distention, Tenderness Edema: No Labs: CBC, BMP 11/12/16 06:00 11/12/16 06:00 INR, PTT INR 1.24 (0.82-1.09) H 11/11/16 12:20 Fibrinogen 529.0 mg/dL (238-498) H 11/11/16 12:20 Problem List - Problems (1) Bacteremia Code(s): R78.81 - BACTEREMIA (2) Cephalic vein thrombosis, left Code(s): I82.612 - ACUTE EMBOLISM AND THOMBOS OF SUPERFIC VEINS OF L UP EXTREM (3) Left arm cellulitis Code(s): L03.114 - CELLULITIS OF LEFT UPPER LIMB (4) HTN (hypertension) Code(s): I10 - ESSENTIAL (PRIMARY) HYPERTENSION Qualifiers: Hypertension type: essential hypertension Qualified Code(s): I10 - Essential (primary) hypertension (5) MRSA bacteremia Code(s): R78.81 - BACTEREMIA Assessment/Plan PLAN On IV Antibiotics Repeat blood cultures negative CT head negative Cardiology eval appreciated spoke with pt's girlfriend On Lovenox sc for DVT prophylaxis Warm compresses to left arm change to liquid diet stool for cdiff pending on Zofran for nausea
[2016-11-12] MEDS ORDERED: POTASSIUM CHLORIDE TABS 20 MEQ TABLET.ER (FP) PO ONE (11:30)
[2016-11-12] MEDS: ENALAPRIL MALEATE 5 MG TABLET (FP) PO SCH (11:39)
[2016-11-12] MEDS: TOPIRAMATE 25 MG TABLET (FP) PO SCH ×2 (11:39→21:48)
[2016-11-12] MEDS: ENOXAPARIN NA (PORCINE) 40 MG/0.4 ML DISP.SYRIN SQ SCH (11:40)
[2016-11-12] MEDS: ASPIRIN 81 MG CHEWABLE TABLETS PO SCH (11:40)
--- NOTE | 2016-11-12 13:46 | PN ---
Progress Note, Physician Chief Complaint: ID Says he still feels poorly but no fever Cefazolin - Current Medication List Current Medications: Active Medications Acetaminophen (Tylenol -) 650 mg PO Q6H PRN PRN Reason: FEVER OR PAIN Last Admin: 11/11/16 01:09 Dose: 650 mg Aspirin (Asa -) 81 mg PO DAILY [facility] Last Admin: 11/12/16 11:40 Dose: 81 mg Bacitracin (Bacitracin -) 1 applic TP BID PRN PRN Reason: SKIN INFECTION Last Admin: 11/10/16 23:31 Dose: 1 applic Enalapril Maleate (Vasotec -) 2.5 mg PO DAILY [facility] Last Admin: 11/12/16 11:39 Dose: 2.5 mg Enoxaparin Sodium (Lovenox -) 40 mg SQ DAILY [facility] Last Admin: 11/12/16 11:40 Dose: 40 mg Cefazolin Sodium/Dextrose (Ancef 2 Gm Premixed Ivpb -) 50 mls @ 100 mls/hr IVPB Q8H-IV [facility] Last Admin: 11/12/16 12:00 Dose: 100 mls/hr Montelukast Sodium (Singulair -) 10 mg PO HS [facility] Last Admin: 11/11/16 23:38 Dose: 10 mg Ondansetron HCl (Zofran Injection) 4 mg IVPB Q6H PRN PRN Reason: NAUSEA AND/OR VOMITING Last Admin: 11/12/16 10:49 Dose: 4 mg Topiramate (Topamax -) 25 mg PO BID [facility] Last Admin: 11/12/16 11:39 Dose: 25 mg Tramadol HCl (Ultram -) 50 mg PO Q4H PRN PRN Reason: PAIN Last Admin: 11/12/16 10:55 Dose: 50 mg - Objective Vital Signs: Vital Signs Temperature 98.5 F 11/12/16 10:57 Pulse Rate 66 11/12/16 10:57 Respiratory Rate 16 11/12/16 10:57 Blood Pressure 114/58 11/12/16 10:57 O2 Sat by Pulse Oximetry (%) 99 11/11/16 21:00 Constitutional: Yes: Well Nourished, No Distress Eyes: Yes: WNL, Conjunctiva Clear. No: Other (No petechiae) Neck: Yes: WNL, Supple Cardiovascular: Yes: Regular Rate and Rhythm, S1, S2. No: Murmur Respiratory: Yes: WNL, Regular, CTA Bilaterally Gastrointestinal: Yes: WNL, Normal Bowel Sounds, Soft. No: Tenderness Extremities: Yes: Erythema, Other (left arm swelling) Labs: CBC, BMP 11/12/16 06:00 11/12/16 06:00 INR, PTT INR 1.24 (0.82-1.09) H 11/11/16 12:20 Fibrinogen 529.0 mg/dL (238-498) H 11/11/16 12:20 Assessment/Plan Microbiology 11/10/16 23:37 Urine - Urine Clean Catch Urine Culture - Final NO GROWTH OBTAINED 11/10/16 17:19 Blood - Peripheral Venous Blood Culture - Preliminary NO GROWTH OBTAINED AFTER 24 HOURS, INCUBATION TO CONTINUE FOR 4 DAYS. 11/10/16 17:19 Blood - Peripheral Venous Blood Culture - Preliminary NO GROWTH OBTAINED AFTER 24 HOURS, INCUBATION TO CONTINUE FOR 4 DAYS. Laboratory Tests 11/11/16 11/12/16 12:20 06:00 WBC 3.6 L Hgb 12.5 Plt Count 92 L D ESR 49 H Assessment MSSA bacteremia cleared ( pacemaker ) Phlebititis of the left arm Cephalic v. thrombosis Plan Continue antibiotic 4 weeks total PICC line [facility]
[2016-11-12] MEDS ORDERED: PT OWN MED DRAWER 7, Y5N ONE ×3 (20:59→21:47)
[2016-11-12] MEDS: MONTELUKAST NA 10 MG TABLET PO SCH (21:47)
[2016-11-13] MEDS ORDERED: PT OWN MED DRAWER 7, Y5N ONE ×5 (01:35→23:44)
[2016-11-13] MEDS: CEFAZOLIN 2 GM/D5W 50 ML IVPB SCH ×3 (02:16→17:45)
[2016-11-13 08:09] LABS: ALBUMIN 2.9 g/dl (3.4-5.0); ANION GAP 10 (8-16); BILIRUBIN,TOTAL 0.5 mg/dL (0.2-1.0); CALCIUM 8.4 mg/dL (8.5-10.1); CO2 28 mmol/L (21-32); CREATININE 0.8 mg/dL (0.7-1.3); GLUCOSE,RANDOM 100 mg/dL (74-106); SGOT/AST 27 U/L (15-37); SGPT/ALT 31 U/L (12-78); TOT PROT 5.8 g/dl (6.4-8.2)
[2016-11-13 08:10] LABS: ALK PHOS 69 U/L (45-117)
[2016-11-13 08:29] LABS: BASOPHIL 0.5 % (0-2.0); EOSINOPHIL 1.7 % (0-4.5); MCH 32.5 pg (25.7-33.7); MCHC 35.5 g/dl (32.0-35.9); MEAN CELL VOLUME 91.4 fl (80-96); MEAN PLT VOLUME 9.1 fl (7.5-11.1); NEUTROPHILS 47.4 % (42.8-82.8); PLATELET COUNT 112 K/MM3 (134-434); RDW 12.7 % (11.9-15.9); WHITE BLOOD COUNT 3.8 K/mm3 (4.0-10.0)
--- NOTE | 2016-11-13 10:10 | PN ---
Progress Note (short form) - Note Progress Note: SUBJECTIVE: Patient seen and examined. Chart reviewed. Feels weak but little better. Denies chest pain. Mild cough present. Afebrile. OBJECTIVE: Vital Signs 11/13/16 05:46 Temperature 98.4 F Pulse Rate 72 Respiratory 18 Rate Blood Pressure 119/66 Intake & Output 11/12/16 11/13/16 11/13/16 23:59 07:59 15:59 Intake Total 831 350 Balance 831 350 Intake: IV 581 1/2 Normal Saline 1,000 581 ml @ 83 mls/hr IV ASDIR [facility] Rx#:[id number] IVPB 100 Oral 250 250 Other: Voiding Method Toilet Toilet # Unmeasured Voids Void 2 1 Bowel Movement No No Active Medications Acetaminophen (Tylenol -) 650 mg PO Q6H PRN PRN Reason: FEVER OR PAIN Last Admin: 11/11/16 01:09 Dose: 650 mg Aspirin (Asa -) 81 mg PO DAILY [facility] Last Admin: 11/13/16 10:12 Dose: 81 mg Bacitracin (Bacitracin -) 1 applic TP BID PRN PRN Reason: SKIN INFECTION Last Admin: 11/10/16 23:31 Dose: 1 applic Enalapril Maleate (Vasotec -) 2.5 mg PO DAILY [facility] Last Admin: 11/13/16 10:13 Dose: 2.5 mg Enoxaparin Sodium (Lovenox -) 40 mg SQ DAILY [facility] Last Admin: 11/13/16 10:13 Dose: 40 mg Cefazolin Sodium/Dextrose (Ancef 2 Gm Premixed Ivpb -) 50 mls @ 100 mls/hr IVPB Q8H-IV [facility] Last Admin: 11/13/16 10:12 Dose: 100 mls/hr Montelukast Sodium (Singulair -) 10 mg PO HS [facility] Last Admin: 11/12/16 21:47 Dose: 10 mg Ondansetron HCl (Zofran Injection) 4 mg IVPB Q6H PRN PRN Reason: NAUSEA AND/OR VOMITING Last Admin: 11/12/16 10:49 Dose: 4 mg Topiramate (Topamax -) 25 mg PO BID [facility] Last Admin: 11/13/16 10:12 Dose: 25 mg Tramadol HCl (Ultram -) 50 mg PO Q4H PRN PRN Reason: PAIN Last Admin: 11/12/16 21:48 Dose: 50 mg Laboratory Results - last 24 hr 11/13/16 11/13/16 06:00 06:00 WBC 3.8 L RBC 3.54 L Hgb 11.5 L Hct 32.3 L MCV 91.4 MCHC 35.5 RDW 12.7 Plt Count 112 L D MPV 9.1 Neutrophils % 47.4 Lymphocytes % 39.6 Monocytes % 10.8 H Eosinophils % 1.7 Basophils % 0.5 D Sodium 145 Potassium 3.4 L Chloride 107 Carbon Dioxide 28 Anion Gap 10 BUN 7 Creatinine 0.8 Creat Clearance w eGFR > 60 Random Glucose 100 Calcium 8.4 L Total Bilirubin 0.5 D AST 27 ALT 31 Alkaline Phosphatase 69 Total Protein 5.8 L Albumin 2.9 L Microbiology 11/11/16 18:30 Influenza Types A,B Antigen ([facility]) - Final Nasopharyngeal Swab - Final 11/10/16 17:19 Blood Culture - Preliminary Blood - Peripheral Venous NO GROWTH OBTAINED AFTER 48 HOURS, INCUBATION TO CONTINUE FOR 3 DAYS. 11/10/16 17:19 Blood Culture - Preliminary Blood - Peripheral Venous NO GROWTH OBTAINED AFTER 48 HOURS, INCUBATION TO CONTINUE FOR 3 DAYS. 11/10/16 23:37 Urine Culture - Final Urine - Urine Clean Catch NO GROWTH OBTAINED PHYSICAL EXAMINATION: Constitutional: Yes: Calm. Cardiovascular: Yes: Regular Rate and Rhythm Respiratory: Yes: CTA Bilaterally Gastrointestinal: Yes: Normal Bowel Sounds, Soft. No: Distention, Tenderness Edema: No ASSESSMENT & PLAN: - On IV Antibiotics - Will request for PICC line. - Discussed with patient - Not ready for transfer yet--He says he will talk to his fiance. - Daily out of bed to chair. - Will follow. Documentation prepared by Natasha Page, acting as a medical voucher clerk for David Wyman MD.
[2016-11-13] MEDS: ASPIRIN 81 MG CHEWABLE TABLETS PO SCH (10:12)
[2016-11-13] MEDS: TOPIRAMATE 25 MG TABLET (FP) PO SCH ×2 (10:12→22:04)
[2016-11-13] MEDS: ENOXAPARIN NA (PORCINE) 40 MG/0.4 ML DISP.SYRIN SQ SCH (10:13)
[2016-11-13] MEDS: ENALAPRIL MALEATE 5 MG TABLET (FP) PO SCH (10:13)
[2016-11-13] MEDS ORDERED: PICC LINE 8 ML FLUSH PROTOCOL IVPUSH PRN (10:19)
[2016-11-13] MEDS ORDERED: POTASSIUM CHLORIDE TABS 20 MEQ TABLET.ER (FP) PO ONE (10:20)
--- NOTE | 2016-11-13 10:59 | PN ---
Progress Note (short form) - Note Progress Note: s: no cp sob palps dizzy; better appetite today o: Vital Signs Period Temp Pulse Resp BP Sys/Draper Pulse Ox Last 24 Hr 98.1 F-98.5 F 66-74 16-18 106-119/55-66 99 nad no jvd rrr s1s2 no mrg cta bl nl eff aaox3 no le e/c/c no jaundice diaphoresis Current Medications Generic Name Dose Route Start Last Admin Trade Name Freq PRN Reason Stop Dose Admin Acetaminophen 650 mg 11/10/16 20:15 11/11/16 01:09 Tylenol - PO 650 mg Q6H PRN Administration FEVER OR PAIN Aspirin 81 mg 11/11/16 10:00 11/13/16 10:12 Asa - PO 81 mg DAILY TIFFANIE Administration Bacitracin 1 applic 11/10/16 20:14 11/10/16 23:31 Bacitracin - TP 1 applic BID PRN Administration SKIN INFECTION Enalapril Maleate 2.5 mg 11/11/16 10:00 11/13/16 10:13 Vasotec - PO 2.5 mg DAILY TIFFANIE Administration Enoxaparin Sodium 40 mg 11/10/16 21:00 11/13/16 10:13 Lovenox - SQ 40 mg DAILY TIFFANIE Administration IV Flush 8 ml 11/13/16 10:19 Picc Line Flush IVPUSH PRN PRN Protocol Cefazolin Sodium/Dextrose 50 mls @ 100 mls/hr 11/11/16 11:50 11/13/16 10:12 Ancef 2 Gm Premixed Ivpb - IVPB 100 mls/hr Q8H-IV TIFFANIE Administration Montelukast Sodium 10 mg 11/10/16 22:00 11/12/16 21:47 Singulair - PO 10 mg HS TIFFANIE Administration Ondansetron HCl 4 mg 11/11/16 22:46 11/12/16 10:49 Zofran Injection IVPB 4 mg Q6H PRN Administration NAUSEA AND/OR VOMITING Topiramate 25 mg 11/10/16 22:00 11/13/16 10:12 Topamax - PO 25 mg BID TIFFANIE Administration Tramadol HCl 50 mg 11/11/16 22:46 11/12/16 21:48 Ultram - PO 50 mg Q4H PRN Administration PAIN CBC, BMP 11/13/16 06:00 11/13/16 06:00 echo 10/2016 [facility]: TDS, grossly nl lv/rv, trace-mild mr, 1+ tr echo 02/2016 [facility]: TDS, grossly nl lv/rv. 1+ tr rvsp 30-40. echo 06/2015: mod red lvef, global hk, rv tds, mild-mod tr, rvsp 30-40 cath 07/2015: only had <30% mLAD, lvef normal ecg: likely sr (can't exclude underlying atrial arrhythmia - has prominent u wave, baseline artifact with intermittent abnormal t wave contour that may represent hidden atrial activity), incomplete rbbb, AV conduction delay. no ischemic changes a/p: 36 m hx ppm (medtronic, approx 2004 placed, cardiac eval done in [place] , per pt was put in for cardiogenic syncope), NICM (mod reduced lvef found on echo 06/2015 now normalized on medical therapy), migraines, here with +bld cxs. MSSA bacteremia: -likely source from phlebitis/prior IV site -repeat bld cxs ngtd, no fever, wbc low -TTE TDS but unremarkable -currently responding to abx, no indication of endocarditis -would cont abx per ID for phlebitis/bacteremia -if pt shows signs of treatment failure would pursue SWAPNA +/- pacer extraction hx of syncope: -pt has hx of intermittent syncopal episodes. cardiac workup 10 yrs ago in [place] revealed "cardiogenic syncope" and led to ppm per pt -recently here with + orthostatic vitals in setting of dehydration from poor po intake during recent illness, likely this is etiology of recent syncope. -tele unremarkable during recent admit and ppm check then showed nl fcn, no pacing required, battery approx 11 mos left -no cardiac etiology of recent syncope episodes -if episode were to occur again would consider stopping maximo/bb (currently on for chf) and see if this helps and then next would be midodrine or florinef NICM -echo in 06/2015 showed mod reduced lvef. He was started on bb/maximo-i for chf regimen and also sent for cardiac cath showing NICM. -after being on chf med repeat echos show nl lvef -no signs chf -cont home maximo. bb held due to low bp here, likely from infection medtronic single chamber ppm: -ppm check here (11/05/16) shows nl fcn, no pacing required, battery approx 11 mos left
--- NOTE | 2016-11-13 15:09 | PN ---
Progress Note (short form) - Note Progress Note: still not feeling well on clears no appetite still some headache feels week Vital Signs Period Temp Pulse Resp BP Sys/Draper Pulse Ox Last 24 Hr 98.4 F 72 18-18 119/66 98-99 cor-rrr lungs clear abd soft,nt minimal erythema LUE, small cord - no drainage ext no edema CBC, BMP 11/13/16 06:00 11/13/16 06:[address] negative Microbiology 11/11/16 18:30 Nasopharyngeal Swab Respiratory Virus Panel - Preliminary 11/11/16 18:30 Nasopharyngeal Swab Influenza Types A,B Antigen (KEVEN) - Final 11/11/16 18:30 Nasopharyngeal Swab - Final 11/10/16 17:19 Blood - Peripheral Venous Blood Culture - Preliminary NO GROWTH OBTAINED AFTER 48 HOURS, INCUBATION TO CONTINUE FOR 3 DAYS. 11/10/16 17:19 Blood - Peripheral Venous Blood Culture - Preliminary NO GROWTH OBTAINED AFTER 48 HOURS, INCUBATION TO CONTINUE FOR 3 DAYS. 11/10/16 23:37 Urine - Urine Clean Catch Urine Culture - Final NO GROWTH OBTAINED blood cultures 11/09 MSSA a/p MSSA bacteremia secondary to phlebitis continue cefazolin pen allergy repeat labs in am cardiology note reviewed SWAPNA on hold for now if headache and nausea persist would have neurology evaluate PPM repeat esr/crp
[2016-11-13] MEDS: traMADol HCL 50 MG TABLET PO PRN (17:59)
[2016-11-13] MEDS: MONTELUKAST NA 10 MG TABLET PO SCH (22:04)
[2016-11-14] MEDS: CEFAZOLIN 2 GM/D5W 50 ML IVPB SCH ×3 (01:23→18:50)
[2016-11-14 08:19] LABS: BASOPHIL 0.3 % (0-2.0); EOSINOPHIL 2.7 % (0-4.5); MCH 32.1 pg (25.7-33.7); MEAN CELL VOLUME 91.8 fl (80-96); MEAN PLT VOLUME 8.8 fl (7.5-11.1); NEUTROPHILS 59.3 % (42.8-82.8); PLATELET COUNT 146 K/MM3 (134-434); RDW 12.6 % (11.9-15.9); WHITE BLOOD COUNT 6.5 K/mm3 (4.0-10.0)
[2016-11-14 09:03] LABS: CALCIUM 9.2 mg/dL (8.5-10.1)
[2016-11-14 09:06] LABS: C-REACTIVE PROTEIN 1.5 MG/DL (0.00-0.3); CREATININE 0.8 mg/dL (0.7-1.3)
[2016-11-14 10:04] LABS: ERYTHROCYTE SEDIMENTATION RATE 35 mm/hr (0-10)
--- NOTE | 2016-11-14 10:38 | PN ---
Progress Note (short form) - Note Progress Note: s: no cp sob palps dizzy o: Vital Signs Period Temp Pulse Resp BP Sys/Draper Pulse Ox Last 24 Hr 98.4 F-98.7 F 64-76 18-20 130-141/71-82 98 nad no jvd rrr s1s2 no mrg cta bl nl eff aaox3 no le e/c/c no jaundice diaphoresis Current Medications Generic Name Dose Route Start Last Admin Trade Name Freq PRN Reason Stop Dose Admin Acetaminophen 650 mg 11/10/16 20:15 11/11/16 01:09 Tylenol - PO 650 mg Q6H PRN Administration FEVER OR PAIN Aspirin 81 mg 11/11/16 10:00 11/13/16 10:12 Asa - PO 81 mg DAILY TIFFANIE Administration Bacitracin 1 applic 11/10/16 20:14 11/10/16 23:31 Bacitracin - TP 1 applic BID PRN Administration SKIN INFECTION Enalapril Maleate 2.5 mg 11/11/16 10:00 11/13/16 10:13 Vasotec - PO 2.5 mg DAILY TIFFANIE Administration Enoxaparin Sodium 40 mg 11/10/16 21:00 11/13/16 10:13 Lovenox - SQ 40 mg DAILY TIFFANIE Administration IV Flush 8 ml 11/13/16 10:19 Picc Line Flush IVPUSH PRN PRN Protocol Cefazolin Sodium/Dextrose 50 mls @ 100 mls/hr 11/11/16 11:50 11/14/16 01:23 Ancef 2 Gm Premixed Ivpb - IVPB 100 mls/hr Q8H-IV TIFF[facility]IE Administration Montelukast Sodium 10 mg 11/10/16 22:00 11/13/16 22:04 Singulair - PO 10 mg HS TIFFANIE Administration Ondansetron HCl 4 mg 11/11/16 22:46 11/12/16 10:49 Zofran Injection IVPB 4 mg Q6H PRN Administration NAUSEA AND/OR VOMITING Topiramate 25 mg 11/10/16 22:00 11/13/16 22:04 Topamax - PO 25 mg BID TIFFANIE Administration Tramadol HCl 50 mg 11/11/16 22:46 11/13/16 17:59 Ultram - PO 50 mg Q4H PRN Administration PAIN CBC, BMP 11/14/16 06:30 11/14/16 06:30 echo 10/2016 [facility]: TDS, grossly nl lv/rv, trace-mild mr, 1+ tr echo 02/2016 [facility]: TDS, grossly nl lv/rv. 1+ tr rvsp 30-40. echo 06/2015: mod red lvef, global hk, rv tds, mild-mod tr, rvsp 30-40 cath 07/2015: only had <30% mLAD, lvef normal ecg: likely sr (can't exclude underlying atrial arrhythmia - has prominent u wave, baseline artifact with intermittent abnormal t wave contour that may represent hidden atrial activity), incomplete rbbb, AV conduction delay. no ischemic changes a/p: 36 m hx ppm (medtronic, approx 2004 placed, cardiac eval done in [place] , per pt was put in for cardiogenic syncope), NICM (mod reduced lvef found on echo 06/2015 now normalized on medical therapy), migraines, here with +bld cxs. MSSA bacteremia: -source from phlebitis/prior IV site -repeat bld cxs ngtd, no fever, wbc low -TTE TDS but unremarkable -currently responding to abx, no indication of endocarditis at this time -would cont course of abx per ID for phlebitis/bacteremia -if pt shows signs of treatment failure would pursue SWAPNA +/- pacer extraction ( pt currently not interested in this) hx of syncope: -pt has hx of intermittent syncopal episodes. cardiac workup 10 yrs ago in [place] revealed "cardiogenic syncope" and led to ppm per pt -recently here with + orthostatic vitals in setting of dehydration from poor po intake during recent illness, likely this is etiology of recent syncope. -tele unremarkable during recent admit and ppm check then showed nl fcn, no pacing required, battery approx 11 mos left -no cardiac etiology of recent syncope episodes -if episode were to occur again would consider stopping maximo/bb (currently on for chf) and see if this helps and then next would be midodrine or florinef NICM -echo in 06/2015 showed mod reduced lvef. He was started on bb/maximo-i for chf regimen and also sent for cardiac cath showing NICM. -after being on chf med repeat echos show nl lvef -no signs chf -cont home maximo. bb held due to low bp here, likely from infection medtronic single chamber ppm: -ppm check here (11/05/16) shows nl fcn, no pacing required, battery approx 11 mos left
[2016-11-14] MEDS: ASPIRIN 81 MG CHEWABLE TABLETS PO SCH (11:00)
[2016-11-14] MEDS: ENALAPRIL MALEATE 5 MG TABLET (FP) PO SCH (11:00)
[2016-11-14] MEDS: TOPIRAMATE 25 MG TABLET (FP) PO SCH ×2 (11:00→22:44)
[2016-11-14] MEDS: traMADol HCL 50 MG TABLET PO PRN ×2 (11:00→22:36)
[2016-11-14] MEDS: ENOXAPARIN NA (PORCINE) 40 MG/0.4 ML DISP.SYRIN SQ SCH (11:00)
--- NOTE | 2016-11-14 11:46 | PN ---
Progress Note, Physician Chief Complaint: still has a headache, not as persistent No chills No body aches, nausea Hungry - Current Medication List Current Medications: Active Medications Acetaminophen (Tylenol -) 650 mg PO Q6H PRN PRN Reason: FEVER OR PAIN Last Admin: 11/11/16 01:09 Dose: 650 mg Aspirin (Asa -) 81 mg PO DAILY [facility] Last Admin: 11/14/16 11:00 Dose: 81 mg Bacitracin (Bacitracin -) 1 applic TP BID PRN PRN Reason: SKIN INFECTION Last Admin: 11/10/16 23:31 Dose: 1 applic Enalapril Maleate (Vasotec -) 2.5 mg PO DAILY [facility] Last Admin: 11/14/16 11:00 Dose: 2.5 mg Enoxaparin Sodium (Lovenox -) 40 mg SQ DAILY [facility] Last Admin: 11/14/16 11:00 Dose: 40 mg IV Flush (Picc Line Flush) 8 ml IVPUSH PRN PRN PRN Reason: Protocol Cefazolin Sodium/Dextrose (Ancef 2 Gm Premixed Ivpb -) 50 mls @ 100 mls/hr IVPB Q8H-IV [facility]FFANIE Last Admin: 11/14/16 01:23 Dose: 100 mls/hr Montelukast Sodium (Singulair -) 10 mg PO HS [facility] Last Admin: 11/13/16 22:04 Dose: 10 mg Ondansetron HCl (Zofran Injection) 4 mg IVPB Q6H PRN PRN Reason: NAUSEA AND/OR VOMITING Last Admin: 11/12/16 10:49 Dose: 4 mg Topiramate (Topamax -) 25 mg PO BID [facility] Last Admin: 11/14/16 11:00 Dose: 25 mg Tramadol HCl (Ultram -) 50 mg PO Q4H PRN PRN Reason: PAIN Last Admin: 11/13/16 17:59 Dose: 50 mg - Objective Vital Signs: Vital Signs Temperature 98.7 F 11/14/16 06:23 Pulse Rate 64 11/14/16 06:23 Respiratory Rate 18 11/14/16 06:23 Blood Pressure 141/78 11/14/16 06:23 O2 Sat by Pulse Oximetry (%) 98 11/13/16 21:00 Constitutional: Yes: No Distress Cardiovascular: Yes: Regular Rate and Rhythm Respiratory: Yes: CTA Bilaterally Gastrointestinal: Yes: Normal Bowel Sounds, Soft. No: Distention, Tenderness Edema: No Labs: CBC, BMP 11/14/16 06:30 11/14/16 06:30 INR, PTT INR 1.24 (0.82-1.09) H 11/11/16 12:20 Fibrinogen 529.0 mg/dL (238-498) H 11/11/16 12:20 Problem List - Problems (1) Bacteremia Code(s): R78.81 - BACTEREMIA (2) Cephalic vein thrombosis, left Code(s): I82.612 - ACUTE EMBOLISM AND THOMBOS OF SUPERFIC VEINS OF L UP EXTREM (3) Left arm cellulitis Code(s): L03.114 - CELLULITIS OF LEFT UPPER LIMB (4) HTN (hypertension) Code(s): I10 - ESSENTIAL (PRIMARY) HYPERTENSION Qualifiers: Hypertension type: essential hypertension Qualified Code(s): I10 - Essential (primary) hypertension (5) MRSA bacteremia Code(s): R78.81 - BACTEREMIA Assessment/Plan PLAN On IV Antibiotics-- total 4 weeks Repeat blood cultures negative CT head negative Neurology eval as he still has headache spoke with pt's girlfriend On Lovenox sc for DVT prophylaxis Warm compresses to left arm start regular diet stool cdiff never done, now no diarrhea SWAPNA on hold as per Cardiology
--- NOTE | 2016-11-14 15:31 | PN ---
Progress Note (short form) - Note Progress Note: Vital Signs Period Temp Pulse Resp BP Sys/Draper Pulse Ox Last 24 Hr 98.4 F 72 18-18 119/66 98-99 cor-rrr lungs clear abd soft,nt minimal erythema LUE, small cord - no drainage ext no edema CBC, BMP 11/13/16 06:00 11/13/16 06:[address] negative Microbiology 11/11/16 18:30 Nasopharyngeal Swab Respiratory Virus Panel - Preliminary 11/11/16 18:30 Nasopharyngeal Swab Influenza Types A,B Antigen (KEVEN) - Final 11/11/16 18:30 Nasopharyngeal Swab - Final 11/10/16 17:19 Blood - Peripheral Venous Blood Culture - Preliminary NO GROWTH OBTAINED AFTER 48 HOURS, INCUBATION TO CONTINUE FOR 3 DAYS. 11/10/16 17:19 Blood - Peripheral Venous Blood Culture - Preliminary NO GROWTH OBTAINED AFTER 48 HOURS, INCUBATION TO CONTINUE FOR 3 DAYS. 11/10/16 23:37 Urine - Urine Clean Catch Urine Culture - Final NO GROWTH OBTAINED blood cultures 11/09 MSSA a/p MSSA bacteremia secondary to phlebitis continue cefazolin pen allergy repeat labs in am cardiology note reviewed SWAPNA on hold for now if headache and nausea persist would have neurology evaluate PPM repeat esr/crp
[2016-11-14] MEDS ORDERED: KETOROLAC TROMETHAMINE 30 MG/1 ML VIAL IM ONE (17:57)
--- NOTE | 2016-11-14 17:57 | CON.NEURO ---
Consult Consult Specialty:: NEurology - History of Present Illness Chief Complaint: HAWTHORNE History of Present Illness: 36 yrs old male admitted for positive blood cultures, positive for MSSA. HX of syncope -- seen in past for this. Now with HAWTHORNE, HX of migraines, VAS 4/10, +P, +P, +N- has tried imitrex in past; no focal weakness, denies neck stiffness, on ABX - History Source History Provided By: Patient - Past Medical History [employer]: Yes: Syncope Cardio/Vascular: Yes: HTN, Other (PPM , h/o syncope) - Alcohol/Substance Use Hx Alcohol Use: No - Smoking History Smoking history: Never smoked Have you smoked in the past 12 months: No Aproximately how many cigarettes per day: 0 Home Medications - Allergies Allergies/Adverse Reactions: Allergies Allergy/AdvReac Type Severity Reaction Status Date / Time alcohol Allergy Hives Verified 11/10/16 16:33 Penicillins Allergy Verified 11/10/16 16:33 Sulfa (Sulfonamide Allergy Verified 11/10/16 16:33 Antibiotics) - Home Medications Home Medications: Ambulatory Orders Enalapril Maleate 2.5 mg PO DAILY 02/14/16 Montelukast Na [Singulair -] 10 mg PO HS 11/04/16 Topiramate [Topamax -] 25 mg PO BID #60 tablet 11/06/16 Bacitracin - [Bacitracin Topical Ointment -] 1 applic TP BID PRN #1 tube Cephalexin Monohydrate [Keflex -] 500 mg PO Q8H #30 capsule 11/09/16 Sulfamethoxazole/Trimethoprim [Bactrim Ds -] 1 tab PO BID #20 tablet 11/09/16 Clindamycin [Cleocin -] 300 mg PO Q6HPO #40 capsule 11/10/16 Ibuprofen [Advil -] 600 mg PO QID PRN 11/10/16 Review of Systems - Review of Systems Constitutional: reports: Loss of Appetite Endocrine: reports: Other (HAWTHORNE) Physical Exam-Neuro Vital Signs: Vital Signs Temperature 98.5 F 11/14/16 14:19 Pulse Rate 88 11/14/16 14:19 Respiratory Rate 18 11/14/16 14:19 Blood Pressure 118/74 11/14/16 14:19 O2 Sat by Pulse Oximetry (%) 98 11/14/16 09:00 Labs: CBC, BMP 11/14/16 06:30 11/14/16 06:30 INR, PTT INR 1.24 (0.82-1.09) H 11/11/16 12:20 Fibrinogen 529.0 mg/dL (238-498) H 11/11/16 12:20 - Neuro Exam Level Of Consciousness: Yes: Oriented to Person, Oriented to Place Eyes: Yes: PERRLA Speech: WNL Motor Strength: 5/5: Left Arm, Right Arm, Left Leg, Right Leg (no focal weakness , no nuchal rigidity) NIH Stroke Scale - Total Score NIH Stroke Scale Score: 0 Imaging - Results Cat Scan: Report Reviewed Problem List - Problems (1) Bacteremia Code(s): R78.81 - BACTEREMIA (2) Cephalic vein thrombosis, left Code(s): I82.612 - ACUTE EMBOLISM AND THOMBOS OF SUPERFIC VEINS OF L UP EXTREM (3) Left arm cellulitis Code(s): L03.114 - CELLULITIS OF LEFT UPPER LIMB (4) MRSA bacteremia Code(s): R78.81 - BACTEREMIA (5) Headache Code(s): R51 - HEADACHE Assessment/Plan HX of pacemaker, recurrent syncope, now admitted for MSSA bacteremia and has HAWTHORNE ; HX of migraines in past, suspect these are exacerbation of underlying migraines afebrile, no nuchal rigidity, less likely meningitis, though if no improvement in the next 24-48 hours will LP; on ABX already start TORADOL 30 IV/IM Qd x 3 days REGLAN 10mg IV QD x 3 days (will dc zofran) DEPAKON 500mg IV BID continue topamax 25 bid-will consider upgrading dosage if need be DR DENIS [id number]
[2016-11-14] MEDS ORDERED: METOCLOPRAMIDE HCL INJECTION 10 MG/2 ML VIAL IVPB ONE (17:58)
[2016-11-14] MEDS: VALPROATE SODIUM 500 MG/5 ML VIAL IVPB SCH (22:22)
[2016-11-14] MEDS: MONTELUKAST NA 10 MG TABLET PO SCH (22:23)
[2016-11-15] MEDS: CEFAZOLIN 2 GM/D5W 50 ML IVPB SCH ×3 (01:40→19:11)
--- NOTE | 2016-11-15 08:52 | PN ---
Progress Note, Physician Chief Complaint: headaches better, decreased intensity tolerating diet - Current Medication List Current Medications: Active Medications Acetaminophen (Tylenol -) 650 mg PO Q6H PRN PRN Reason: FEVER OR PAIN Last Admin: 11/11/16 01:09 Dose: 650 mg Aspirin (Asa -) 81 mg PO DAILY [facility] Last Admin: 11/14/16 11:00 Dose: 81 mg Bacitracin (Bacitracin -) 1 applic TP BID PRN PRN Reason: SKIN INFECTION Last Admin: 11/10/16 23:31 Dose: 1 applic Enalapril Maleate (Vasotec -) 2.5 mg PO DAILY [facility] Last Admin: 11/14/16 11:00 Dose: 2.5 mg Enoxaparin Sodium (Lovenox -) 40 mg SQ DAILY [facility] Last Admin: 11/14/16 11:00 Dose: 40 mg IV Flush (Picc Line Flush) 8 ml IVPUSH PRN PRN PRN Reason: Protocol Cefazolin Sodium/Dextrose (Ancef 2 Gm Premixed Ivpb -) 50 mls @ 100 mls/hr IVPB Q8H-IV [facility] Last Admin: 11/15/16 01:40 Dose: 100 mls/hr Montelukast Sodium (Singulair -) 10 mg PO HS [facility] Last Admin: 11/14/16 22:23 Dose: 10 mg Topiramate (Topamax -) 25 mg PO BID [facility] Last Admin: 11/14/16 22:44 Dose: 25 mg Tramadol HCl (Ultram -) 50 mg PO Q4H PRN PRN Reason: PAIN Last Admin: 11/14/16 22:36 Dose: 50 mg Valproate Sodium (Depacon Injection -) 500 mg IVPB BID [facility] Last Admin: 11/14/16 22:22 Dose: 500 mg - Objective Vital Signs: Vital Signs Temperature 98 F 11/15/16 06:19 Pulse Rate 59 L 11/15/16 06:19 Respiratory Rate 18 11/15/16 06:19 Blood Pressure 144/83 11/15/16 06:19 O2 Sat by Pulse Oximetry (%) 98 11/14/16 20:11 Constitutional: Yes: No Distress Cardiovascular: Yes: Regular Rate and Rhythm Respiratory: Yes: CTA Bilaterally Gastrointestinal: Yes: Normal Bowel Sounds, Soft. No: Distention, Tenderness Edema: No Labs: CBC, BMP 11/14/16 06:30 11/14/16 06:30 INR, PTT INR 1.24 (0.82-1.09) H 11/11/16 12:20 Fibrinogen 529.0 mg/dL (238-498) H 11/11/16 12:20 Problem List - Problems (1) Bacteremia Code(s): R78.81 - BACTEREMIA (2) Cephalic vein thrombosis, left Code(s): I82.612 - ACUTE EMBOLISM AND THOMBOS OF SUPERFIC VEINS OF L UP EXTREM (3) Left arm cellulitis Code(s): L03.114 - CELLULITIS OF LEFT UPPER LIMB (4) HTN (hypertension) Code(s): I10 - ESSENTIAL (PRIMARY) HYPERTENSION Qualifiers: Hypertension type: essential hypertension Qualified Code(s): I10 - Essential (primary) hypertension (5) MRSA bacteremia Code(s): R78.81 - BACTEREMIA (6) Migraine Code(s): G43.909 - MIGRAINE, UNSP, NOT INTRACTABLE, WITHOUT STATUS MIGRAINOSUS Qualifiers: Migraine type: without aura Status migrainosus presence: without status migrainosus Intractability: intractable Qualified Code(s): G43.019 - Migraine without aura, intractable, without status migrainosus Assessment/Plan PLAN On IV Antibiotics-- total 4 weeks, may need once daily dosing- will speak with ID Repeat blood cultures negative CT head negative Neurology eval appreciated spoke with pt's girlfriend On Lovenox sc for DVT prophylaxis SWAPNA on hold as per Cardiology OOB daily
[2016-11-15] MEDS: ENOXAPARIN NA (PORCINE) 40 MG/0.4 ML DISP.SYRIN SQ SCH (11:40)
[2016-11-15] MEDS: ASPIRIN 81 MG CHEWABLE TABLETS PO SCH (11:40)
[2016-11-15] MEDS: ENALAPRIL MALEATE 5 MG TABLET (FP) PO SCH (11:40)
[2016-11-15] MEDS: TOPIRAMATE 25 MG TABLET (FP) PO SCH ×2 (11:50→21:50)
[2016-11-15] MEDS: VALPROATE SODIUM 500 MG/5 ML VIAL IVPB SCH ×2 (11:50→21:50)
[2016-11-15] MEDS: traMADol HCL 50 MG TABLET PO PRN (13:39)
--- NOTE | 2016-11-15 14:30 | PN ---
Progress Note, Physician History of Present Illness: Patient known to our service with autonomic dysfunction, multiple syncopal episodes, status post pacemaker placement, migraine headaches, seen in prior visits by Dr. Glass, now with line infection MSSA, on antibiotics, and complaints of 4-5 days of persistent headache, similar to his migraines, but more long lasting, 4-5 hours headache free per day, though, and covering a larger part of his head. The headaches are aggravated not just by flexion of his neck, but by any head movement, and more specifically neck flexion and looking down, makes him feel dizzy. He is photophobic and phonophobic and he has no neck stiffness. - Current Medication List Current Medications: Active Medications Acetaminophen (Tylenol -) 650 mg PO Q6H PRN PRN Reason: FEVER OR PAIN Last Admin: 11/11/16 01:09 Dose: 650 mg Aspirin (Asa -) 81 mg PO DAILY [facility] Last Admin: 11/15/16 11:40 Dose: 81 mg Bacitracin (Bacitracin -) 1 applic TP BID PRN PRN Reason: SKIN INFECTION Last Admin: 11/10/16 23:31 Dose: 1 applic Enalapril Maleate (Vasotec -) 2.5 mg PO DAILY [facility] Last Admin: 11/15/16 11:40 Dose: 2.5 mg Enoxaparin Sodium (Lovenox -) 40 mg SQ DAILY [facility] Last Admin: 11/15/16 11:40 Dose: 40 mg IV Flush (Picc Line Flush) 8 ml IVPUSH PRN PRN PRN Reason: Protocol Cefazolin Sodium/Dextrose (Ancef 2 Gm Premixed Ivpb -) 50 mls @ 100 mls/hr IVPB Q8H-IV [facility] Last Admin: 11/15/16 11:39 Dose: 100 mls/hr Montelukast Sodium (Singulair -) 10 mg PO HS [facility] Last Admin: 11/14/16 22:23 Dose: 10 mg Topiramate (Topamax -) 25 mg PO BID [facility] Last Admin: 11/15/16 11:50 Dose: 25 mg Tramadol HCl (Ultram -) 50 mg PO Q4H PRN PRN Reason: PAIN Last Admin: 11/15/16 13:39 Dose: 50 mg Valproate Sodium (Depacon Injection -) 500 mg IVPB BID [facility] Last Admin: 11/15/16 11:50 Dose: 500 mg - Objective Vital Signs: Vital Signs Temperature 98 F 11/15/16 06:19 Pulse Rate 59 L 11/15/16 06:19 Respiratory Rate 18 11/15/16 06:19 Blood Pressure 144/83 11/15/16 06:19 O2 Sat by Pulse Oximetry (%) 98 11/14/16 20:11 Neurological: Yes: Alert, Oriented, Babinski negative, Cran Nerves II-XII Intact , Other (Neurological exam as above, with no drift, full strength, normal motor tone, normal sensation, and reflexes. Neck is supple with negatie Kernig and Brudzinski signs.) ...Motor Strength: WNL Psychiatric: Yes: WNL Additional Findings/Remarks: Kernig negative, Brudzinksi negative, Neck is supple Labs: CBC, BMP 11/14/16 06:30 11/14/16 06:30 INR, PTT INR 1.24 (0.82-1.09) H 11/11/16 12:20 Fibrinogen 529.0 mg/dL (238-498) H 11/11/16 12:20 Problem List - Problems (1) Migraine Code(s): G43.909 - MIGRAINE, UNSP, NOT INTRACTABLE, WITHOUT STATUS MIGRAINOSUS Qualifiers: Migraine type: without aura Status migrainosus presence: without status migrainosus Intractability: intractable Qualified Code(s): G43.019 - Migraine without aura, intractable, without status migrainosus (2) Headache Code(s): R51 - HEADACHE Assessment/Plan I think that this aggravated headache is his migraine aggravated by his infection, and I see no evidence of meningitis. His neck is supple and he lacks meningeal signs. Furthermore, the hours of headache free time during the days, are unlikely consistent with meningitis, which would almost certainly not allow for pain free periods. I'd therefore continue to treat his migraine as Dr. Glass has laid out, and We' ll f/u with you.
[2016-11-15] MEDS ORDERED: PT OWN MED DRAWER 7, Y5N ONE (21:16)
[2016-11-15] MEDS: MONTELUKAST NA 10 MG TABLET PO SCH (21:50)
[2016-11-16] MEDS ORDERED: PT OWN MED DRAWER 7, Y5N ONE ×4 (03:29→17:34)
[2016-11-16] MEDS: CEFAZOLIN 2 GM/D5W 50 ML IVPB SCH ×3 (03:33→18:10)
--- NOTE | 2016-11-16 08:41 | PN ---
Progress Note (short form) - Note Progress Note: Subjective Patient seen and examined. Chart reviewed. Comfortable. Headaches much better. Eating well. Afebrile. Objective Last Vital Signs Temp Pulse Resp BP Pulse Ox 98.3 F 54 L 20 154/83 98 11/16/16 05:42 11/16/16 05:42 11/16/16 05:42 11/16/16 05:42 11/15/16 10:00 CBC, BMP 11/14/16 06:30 11/14/16 06:30 Physical Exam Constitutional: Yes: No Distress Cardiovascular: Yes: Regular Rate and Rhythm Respiratory: Yes: CTA Bilaterally Gastrointestinal: Yes: Normal Bowel Sounds, Soft. No: Distention, Tenderness Edema: No Problem List - Problems (1) Bacteremia Code(s): R78.81 - BACTEREMIA (2) Cephalic vein thrombosis, left Code(s): I82.612 - ACUTE EMBOLISM AND THOMBOS OF SUPERFIC VEINS OF L UP EXTREM (3) Left arm cellulitis Code(s): L03.114 - CELLULITIS OF LEFT UPPER LIMB (4) HTN (hypertension) Code(s): I10 - ESSENTIAL (PRIMARY) HYPERTENSION Qualifiers: Hypertension type: essential hypertension Qualified Code(s): I10 - Essential (primary) hypertension (5) MRSA bacteremia Code(s): R78.81 - BACTEREMIA (6) Migraine Code(s): G43.909 - MIGRAINE, UNSP, NOT INTRACTABLE, WITHOUT STATUS MIGRAINOSUS Qualifiers: Migraine type: without aura Status migrainosus presence: without status migrainosus Intractability: intractable Qualified Code(s): G43.019 - Migraine without aura, intractable, without status migrainosus Assessment and Plan Stable. Continue abx. 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 SNF Discussed with Dr. Jacques today--- She would like to continue Ancef Discussed with patient as well as family independence case manager. Anticipate d.c later today after PICC line insertion. Will follow. Documentation prepared by Caitlyn Frederick, acting as a medical records assistant for David Wyman MD.
[2016-11-16] MEDS: ASPIRIN 81 MG CHEWABLE TABLETS PO SCH (11:11)
[2016-11-16] MEDS: ENOXAPARIN NA (PORCINE) 40 MG/0.4 ML DISP.SYRIN SQ SCH (11:11)
[2016-11-16] MEDS: VALPROATE SODIUM 500 MG/5 ML VIAL IVPB SCH (11:11)
[2016-11-16] MEDS: ENALAPRIL MALEATE 5 MG TABLET (FP) PO SCH (11:11)
[2016-11-16] MEDS: TOPIRAMATE 25 MG TABLET (FP) PO SCH ×2 (11:11→21:32)
--- NOTE | 2016-11-16 12:22 | PN ---
Progress Note (short form) - Note Progress Note: chart notes reviewed. case d/w'd deshaun vance and edwina. dr bland found no evidence of SBE or device infection. her main concern was that the history suggested prolonged bacteremia at home, possibly a few days, and with MSSA and indwelling cardiac device, she noted the risk of seeding the device. dr vance likewise states he had low clinical suspicion for device-related SBE, and his plan would be tx with 4 weeks of abx regardless of whether or not vege is seen on the device (given there is no indication of valvular vege or valve dysfunction/other SBE complications on clinical grounds). the issue of treating medically, vs explanting hardware, is a very nuanced one in the setting of staph bacteremia, and EP has vast experience with this. however, pt initially declined inpatient transfer to [facility] for further consultation. if he remains clinically stable, might be reasonable to have him see EP as outpatient, and do SWAPNA if indicated as outpatient as well (? before, or after completes abx)--timing per EP opinion. dr mckee will see pt later this afternoon and discuss with him, and reassess him clinically
--- NOTE | 2016-11-16 12:27 | PN ---
Progress Note, Physician History of Present Illness: events noted-- may require 4 week ABX HAWTHORNE better today, appeared to have tolerated migraine RX --less likely meningitis in this scenario - Current Medication List Current Medications: Active Medications Acetaminophen (Tylenol -) 650 mg PO Q6H PRN PRN Reason: FEVER OR PAIN Last Admin: 11/11/16 01:09 Dose: 650 mg Aspirin (Asa -) 81 mg PO DAILY [facility] Last Admin: 11/16/16 11:11 Dose: 81 mg Bacitracin (Bacitracin -) 1 applic TP BID PRN PRN Reason: SKIN INFECTION Last Admin: 11/10/16 23:31 Dose: 1 applic Enalapril Maleate (Vasotec -) 2.5 mg PO DAILY [facility] Last Admin: 11/16/16 11:11 Dose: 2.5 mg Enoxaparin Sodium (Lovenox -) 40 mg SQ DAILY [facility] Last Admin: 11/16/16 11:11 Dose: 40 mg IV Flush (Picc Line Flush) 8 ml IVPUSH PRN PRN PRN Reason: Protocol Cefazolin Sodium/Dextrose (Ancef 2 Gm Premixed Ivpb -) 50 mls @ 100 mls/hr IVPB Q8H-IV TIFFANIE Last Admin: 11/16/16 11:17 Dose: 100 mls/hr Montelukast Sodium (Singulair -) 10 mg PO HS [facility] Last Admin: 11/15/16 21:50 Dose: 10 mg Topiramate (Topamax -) 25 mg PO BID [facility] Last Admin: 11/16/16 11:11 Dose: 25 mg Tramadol HCl (Ultram -) 50 mg PO Q4H PRN PRN Reason: PAIN Last Admin: 11/15/16 13:39 Dose: 50 mg Valproate Sodium (Depacon Injection -) 500 mg IVPB BID [facility] Last Admin: 11/16/16 11:11 Dose: 500 mg - Objective Vital Signs: Vital Signs Temperature 98.3 F 11/16/16 05:42 Pulse Rate 54 L 11/16/16 05:42 Respiratory Rate 20 11/16/16 05:42 Blood Pressure 154/83 11/16/16 05:42 O2 Sat by Pulse Oximetry (%) 98 11/15/16 10:00 Neurological: Yes: Other (non focal) Labs: CBC, BMP 11/14/16 06:30 11/14/16 06:30 INR, PTT INR 1.24 (0.82-1.09) H 11/11/16 12:20 Fibrinogen 529.0 mg/dL (238-498) H 11/11/16 12:20 Problem List - Problems (1) Bacteremia Code(s): R78.81 - BACTEREMIA (2) Cephalic vein thrombosis, left Code(s): I82.612 - ACUTE EMBOLISM AND THOMBOS OF SUPERFIC VEINS OF L UP EXTREM (3) Left arm cellulitis Code(s): L03.114 - CELLULITIS OF LEFT UPPER LIMB (4) MRSA bacteremia Code(s): R78.81 - BACTEREMIA (5) Headache Code(s): R51 - HEADACHE Assessment/Plan HX of recurrent syncope/pacemaker , now with MSSA will require retirement ABX x 4 weeks HAWTHORNE have improved with migraine RX -- will dc toradol, depakon today and inc topamax 50BID no need for LP at this juncture Dr Glass
--- NOTE | 2016-11-16 13:47 | PN ---
Progress Note (short form) - Note Progress Note: ID Cefazolin continues Doing well Original blood culture 11/09 MSSA Selected Entries 11/16/16 05:42 Temperature 98.3 F Pulse Rate 54 L Respiratory 20 Rate Blood Pressure 154/83 Microbiology 11/10/16 17:19 Blood - Peripheral Venous Blood Culture - Final NO GROWTH AFTER 5 DAYS INCUBATION 11/10/16 17:19 Blood - Peripheral Venous Blood Culture - Final NO GROWTH AFTER 5 DAYS INCUBATION Laboratory Tests 11/14/16 11/14/16 06:30 06:30 WBC 6.5 D RBC 3.79 L Hct 34.7 L Plt Count 146 D BUN 6 L Creatinine 0.8 Assessment MSSA bacteremia Phlebitis related Low suspicion for endocarditis CRP down to normal now 10.4 to 1.5 Blood cultures cleared immediately PLan As discussed with cardiology low suspicion for endocarditis Certainly no objection to SWAPNA for completeness though I suspect management not going changet which is to complete total of 4 weeks Renew antibiotic Kindly recall as needed Chang LAND
[2016-11-16] MEDS: MONTELUKAST NA 10 MG TABLET PO SCH (21:32)
--- NOTE | 2016-11-16 21:38 | PN ---
Progress Note (short form) - Note Progress Note: CC: bacteremia. s: no cp sob palps dizzy. no further fevers. cough improved. o: Current Medications Acetaminophen (Tylenol -) 650 mg PO Q6H PRN PRN Reason: FEVER OR PAIN Last Admin: 11/11/16 01:09 Dose: 650 mg Aspirin (Asa -) 81 mg PO DAILY [facility] Last Admin: 11/16/16 11:11 Dose: 81 mg Bacitracin (Bacitracin -) 1 applic TP BID PRN PRN Reason: SKIN INFECTION Last Admin: 11/10/16 23:31 Dose: 1 applic Enalapril Maleate (Vasotec -) 2.5 mg PO DAILY [facility] Last Admin: 11/16/16 11:11 Dose: 2.5 mg Enoxaparin Sodium (Lovenox -) 40 mg SQ DAILY [facility] Last Admin: 11/16/16 11:11 Dose: 40 mg IV Flush (Picc Line Flush) 8 ml IVPUSH PRN PRN PRN Reason: Protocol Cefazolin Sodium/Dextrose (Ancef 2 Gm Premixed Ivpb -) 50 mls @ 100 mls/hr IVPB Q8H-IV TIFFANIE Last Admin: 11/16/16 18:10 Dose: 100 mls/hr Montelukast Sodium (Singulair -) 10 mg PO HS [facility] Last Admin: 11/16/16 21:32 Dose: 10 mg Topiramate (Topamax -) 50 mg PO BID [facility] Last Admin: 11/16/16 21:32 Dose: 50 mg Tramadol HCl (Ultram -) 50 mg PO Q4H PRN PRN Reason: PAIN Last Admin: 11/15/16 13:39 Dose: 50 mg Vital Signs - 24 hr 11/15/16 11/16/16 11/16/16 22:00 05:42 09:00 Temperature 98.2 F 98.3 F Pulse Rate 57 L 54 L Respiratory 20 20 20 Rate Blood Pressure 132/77 154/83 O2 Sat by Pulse 98 Oximetry (%) 11/16/16 11/16/16 11/16/16 10:00 14:27 17:35 Temperature 97.7 F 98.2 F 97.7 F Pulse Rate 63 70 59 L Respiratory 18 20 18 Rate Blood Pressure 153/83 138/65 142/71 O2 Sat by Pulse Oximetry (%) 11/16/16 11/16/16 20:49 20:54 Temperature 98.2 F Pulse Rate 62 Respiratory 18 18 Rate Blood Pressure 150/77 O2 Sat by Pulse 98 Oximetry (%) Intake & Output 11/14/16 11/15/16 11/16/16 11/17/16 07:59 07:59 07:59 07:59 Intake Total 970 1020 400 500 Balance 970 1020 400 500 nad no jvd rrr s1s2 no mrg cta bl nl eff aaox3 no le e/c/c no jaundice diaphoresis CBC, BMP 11/14/16 06:30 11/14/16 06:30 echo 10/2016 [facility]: TDS, grossly nl lv/rv, trace-mild mr, 1+ tr echo 02/2016 [facility]: TDS, grossly nl lv/rv. 1+ tr rvsp 30-40. echo 06/2015: mod red lvef, global hk, rv tds, mild-mod tr, rvsp 30-40 cath 07/2015: only had <30% mLAD, lvef normal ecg: likely sr (can't exclude underlying atrial arrhythmia - has prominent u wave, baseline artifact with intermittent abnormal t wave contour that may represent hidden atrial activity), incomplete rbbb, AV conduction delay. no ischemic changes a/p: 36 m hx ppm (medtronic, approx 2004 placed, cardiac eval done in [place] , per pt was put in for cardiogenic syncope), NICM (mod reduced lvef found on echo 06/2015 now normalized on medical therapy), migraines, here with +bld cxs. MSSA bacteremia: -source from phlebitis/prior IV site -repeat bld cxs ngtd, no fever, wbc low -TTE TDS but unremarkable -currently responding to abx, -would cont course of abx per ID for phlebitis/ bacteremia -if pt shows signs of treatment failure would pursue SWAPNA +/- pacer extraction ( pt currently not interested in this) - 11/16: Dr. Wilkinson discussed case with dr bland (see prior note) regarding risk of occult device infection. Also discussed case with Dr. Downing. Currently plan is to treat for 4 weeks of abx regardless of presence of veg on cardiac device because of high risk of device infection in this case. Currently responding to treatment and low suspicion for ongoing source of infection from endocarditis. I again discussed with the patient regarding the high risk of device infection (regardless of results of SWAPNA) in setting of staph bacteremia. Patient continues to decline transfer for evaluation for need for explant. Consider outpatient follow up with EP/repeat SWAPNA at discretion of outpatient funeral arranger. hx of syncope: -pt has hx of intermittent syncopal episodes. cardiac workup 10 yrs ago in [place] revealed "cardiogenic syncope" and led to ppm per pt -recently here with + orthostatic vitals in setting of dehydration from poor po intake during recent illness, likely this is etiology of recent syncope. -tele unremarkable during recent admit and ppm check then showed nl fcn, no pacing required, battery approx 11 mos left -no cardiac etiology of recent syncope episodes -if episode were to occur again would consider stopping maximo/bb (currently on for chf) and see if this helps and then next would be midodrine or florinef NICM -echo in 06/2015 showed mod reduced lvef. He was started on bb/maximo-i for chf regimen and also sent for cardiac cath showing NICM. -after being on chf med repeat echos show nl lvef -no signs chf -cont home maximo. bb held due to low bp here, likely from infection. Consider resuming if bp remains stable. [employer] single chamber ppm: -ppm check here (11/05/16) shows nl fcn, no pacing required, battery approx 11 mos left
[2016-11-17] MEDS: CEFAZOLIN 2 GM/D5W 50 ML IVPB SCH ×3 (01:16→18:00)
[2016-11-17] MEDS: ENOXAPARIN NA (PORCINE) 40 MG/0.4 ML DISP.SYRIN SQ SCH (10:00)
[2016-11-17] MEDS: ASPIRIN 81 MG CHEWABLE TABLETS PO SCH (10:00)
[2016-11-17] MEDS: ENALAPRIL MALEATE 5 MG TABLET (FP) PO SCH (10:55)
[2016-11-17] MEDS: TOPIRAMATE 25 MG TABLET (FP) PO SCH (11:04)
[2016-11-17] MEDS: traMADol HCL 50 MG TABLET PO PRN (11:04)
[2016-11-17] MEDS ORDERED: METOPROLOL SUCCINATE 25 MG TAB.SR.24H (FP) PO SCH (13:45)
[2016-11-17 18:22] VITALS: BP 148/77; PULSE 63; TEMP 98
--- NOTE | 2016-11-17 19:47 | DS ---
Physical Examination Vital Signs: Vital Signs Temperature 98 F 11/17/16 18:22 Pulse Rate 63 11/17/16 18:22 Respiratory Rate 18 11/17/16 18:22 Blood Pressure 148/77 11/17/16 18:22 O2 Sat by Pulse Oximetry (%) 99 11/17/16 09:00 Constitutional: Yes: No Distress, Calm Cardiovascular: Yes: Regular Rate and Rhythm Respiratory: Yes: CTA Bilaterally Gastrointestinal: Yes: Normal Bowel Sounds, Soft. No: Distention, Tenderness Edema: No Psychiatric: Yes: Alert, Oriented Labs: CBC, BMP 11/14/16 06:30 11/14/16 06:30 Discharge Summary Reason For Visit: BACTEREMIA/CELLULITIS Current Active Problems Syncope (Acute) Hospital Course: Admission Chief Complaint: bacteremia History of Present Illness: 36 yrs old male sent to hospital yesterday for positive blood cultures. Pt was recently discharged from here for syncope. He did not feel good after discharge.Had developed redness and a pimple on the left cubital region where he had his IV line placed. Went to the ER twice due to high fever and dc home on Keflex and Bactrim. He had allergic reaction to Bactrim. He went to Dr Wyman' s office yesterday as he was still feeling weak and sick-- poor appetite . Still had fever and left arm pain . Dr wyman looked into the ER notes and found out his blood cultures were all positive for MSSA. HOSPITALIZATION COURSE Pt started on iv Cefazolin. She was seen by ID and Cardiology. Blood cultures came back negative on 11/10/16. Echo was negative for vegetations. Decision made to hold off SWAPNA and permacath removal as his cultures were negative. Course complicated by headaches which were intractable. Neurologist consulted. CT head negative. Not meningitis but migraine headaches exacerbated by MSSA bacteremia. Started o medications for migraine which alleveiated his headaches. Picc line placed today, dc to SNF for fpc antibiotics-- total 4 weeks. Condition: Improved - Instructions Diet, Activity, Other Instructions: needs 22 more days Referrals: Molly Burton MD [Primary Care Provider] - [facility] - Home Medications Comprehensive Discharge Medication List: Ambulatory Orders Enalapril Maleate 2.5 mg PO DAILY 02/14/16 Montelukast Na [Singulair -] 10 mg PO HS 03/22/17 Bacitracin - [Bacitracin Topical Ointment -] 1 applic TP BID PRN #1 tube Acetaminophen [Tylenol .Regular Strength -] 650 mg PO Q6H PRN #0 tablet Aspirin [ASA -] 81 mg PO DAILY #20 tab.chew 11/17/16 Cefazolin 2 gm/D5w [Ancef 2 gm Premixed Ivpb -] 50 ml IVPB Q8H-IV #66 dose 11/17 Topiramate [Topamax -] 50 mg PO BID #60 tablet 11/17/16 Tramadol HCl [Ultram -] 50 mg PO Q4H PRN #20 tablet MDD 4 11/17/16
--- NOTE | 2016-11-17 19:50 | PN ---
Progress Note, Physician Chief Complaint: HAWTHORNE better today though still minor VAS 5/10 History of Present Illness: HAWTHORNE better today, though minor 4/10 VAs no new issues - Objective Vital Signs: Vital Signs Temperature 98 F 11/17/16 18:22 Pulse Rate 63 11/17/16 18:22 Respiratory Rate 18 11/17/16 18:22 Blood Pressure 148/77 11/17/16 18:22 O2 Sat by Pulse Oximetry (%) 99 11/17/16 09:00 Labs: CBC, BMP 11/14/16 06:30 11/14/16 06:30 INR, PTT INR 1.24 (0.82-1.09) H 11/11/16 12:20 Fibrinogen 529.0 mg/dL (238-498) H 11/11/16 12:20 Problem List - Problems (1) Bacteremia Code(s): R78.81 - BACTEREMIA (2) Cephalic vein thrombosis, left Code(s): I82.612 - ACUTE EMBOLISM AND THOMBOS OF SUPERFIC VEINS OF L UP EXTREM (3) Left arm cellulitis Code(s): L03.114 - CELLULITIS OF LEFT UPPER LIMB (4) MRSA bacteremia Code(s): R78.81 - BACTEREMIA (5) Headache Code(s): R51 - HEADACHE Assessment/Plan Syncope, pacemaker and + bacteremia ion ABX x 4 weeks HAWTHORNE likely migrainous, no clinical evidence to suggest meningitis topamax inc to 50 BID, may use imitrex PRN out pt FU Dr Glass
== END 2016-11-17 19:22 | DRG 315 ==
LOC: JER 16:31 → JERBED 18:47 → J7W 20:31
PROVIDERS: ADMIT Internal Medicine; ATTEND Internal Medicine
PROC: 02HV33Z Insertion of Infusion Device into Superior Vena Cava, Percutaneous Approach (ICD-10-PCS; principal; 2016-11-17)
DX: T80.1XXA Vascular complications following infusion, transfusion and therapeutic injection, initial encounter (principal); I82.612 Acute embolism and thrombosis of superficial veins of left upper extremity; I42.8 Other cardiomyopathies; L03.114 Cellulitis of left upper limb; I80.8 Phlebitis and thrombophlebitis of other sites; A49.02 Methicillin resistant Staphylococcus aureus infection, unspecified site; I10 Essential (primary) hypertension; D69.6 Thrombocytopenia, unspecified; G43.809 Other migraine, not intractable, without status migrainosus; Z95.0 Presence of cardiac pacemaker
CPT/HCPCS: 36415; 36569; 70450-TC; 71010-TC; 77001-TC; 80048; 80053; 81003; 81015; 82550; 82553; 82803; 83605; 83690; 83735; 83880; 84100; 84484; 85025; 85027; 85362; 85384; 85610; 85651; 85730; 86140; 86850; 86900; 86901; 87040; 87086; 87186; 87254; 87804; 93005; 93010; 93306-TC; 93971; 96361; 96365; 96368; 99283-25; 99284-25; 99285-25; C1751; G0480